=== PATIENT | female | born 1950 | race Caucasian/White ===

== ENCOUNTER 2022-11-08 12:11 | Outpatient (REF) | payer MEDICARE, SELFPAY ==
--- NOTE | ~2022-11-08 | XR_ITS ---
EXAMINATION: RIGHT ELBOW, RIGHT HAND, AND LEFT WRIST. CLINICAL INFORMATION: Pain COMPARISON: None. TECHNIQUE: Three-view left wrist, 3 view right hand, 3 view right elbow. FINDINGS: Right elbow: There is some calcific spurring seen about the medial epicondyle consistent with epicondylitis or possible.. No acute fracture, dislocation, or effusion identified. There is some calcification about the dorsal aspect some which appears be related to calcification within the triceps tendon but other about the joint and may represent acute calcific periarthritis. Right hand: There appears to be some degree of osteopenia present. No acute fracture or dislocation is appreciated. Joint spaces are maintained. Small amount of soft tissue calcification just medial to the base of the fifth metacarpal which may represent sequela of previous trauma. About the dorsum of the wrist there is noted to be a 2 mm calcification which may represent sequela of previous triquetral avulsion injury and clinical correlation is suggested to site of pain. Left wrist: Ectopic soft tissue tubular calcifications are seen about the medial and dorsal aspects of the left wrist which may represent myositis ossificans or tumoral calcinosis. This could also be related to acute calcific ernie- arthritis. There is soft tissue bump seen about the dorsum of the wrist related to this. There is some small regions of calcification at the bases of the first metacarpal and fifth proximal phalanx likely being posttraumatic in nature. No acute fracture or dislocation is evident. Joint spaces are generally maintained. XR/XR hand wrist RT IMPRESSION: No evidence of acute fracture or dislocation of the right elbow, right hand, or left wrist. Calcifications as described above which may be related to acute calcific periarthritis. Other small sites of calcification which may be posttraumatic in nature as described.
--- NOTE | ~2022-11-08 | XR_ITS ---
EXAMINATION: RIGHT ELBOW, RIGHT HAND, AND LEFT WRIST. CLINICAL INFORMATION: Pain COMPARISON: None. TECHNIQUE: Three-view left wrist, 3 view right hand, 3 view right elbow. FINDINGS: Right elbow: There is some calcific spurring seen about the medial epicondyle consistent with epicondylitis or possible.. No acute fracture, dislocation, or effusion identified. There is some calcification about the dorsal aspect some which appears be related to calcification within the triceps tendon but other about the joint and may represent acute calcific periarthritis. Right hand: There appears to be some degree of osteopenia present. No acute fracture or dislocation is appreciated. Joint spaces are maintained. Small amount of soft tissue calcification just medial to the base of the fifth metacarpal which may represent sequela of previous trauma. About the dorsum of the wrist there is noted to be a 2 mm calcification which may represent sequela of previous triquetral avulsion injury and clinical correlation is suggested to site of pain. Left wrist: Ectopic soft tissue tubular calcifications are seen about the medial and dorsal aspects of the left wrist which may represent myositis ossificans or tumoral calcinosis. This could also be related to acute calcific ernie- arthritis. There is soft tissue bump seen about the dorsum of the wrist related to this. There is some small regions of calcification at the bases of the first metacarpal and fifth proximal phalanx likely being posttraumatic in nature. No acute fracture or dislocation is evident. Joint spaces are generally maintained. XR/XR wrist LT 2V IMPRESSION: No evidence of acute fracture or dislocation of the right elbow, right hand, or left wrist. Calcifications as described above which may be related to acute calcific periarthritis. Other small sites of calcification which may be posttraumatic in nature as described.
== END 2022-11-08 12:12 | disposition home or self-care (01) ==
LOC: HO.HMGCX 12:11
PROVIDERS: PCP Internal Medicine Endocrinology, Diabetes & Metabolism; Visit Provider Physician Assistant Medical
DX: M25.531 Pain in right wrist (principal); M25.532 Pain in left wrist; M25.521 Pain in right elbow; M79.641 Pain in right hand
CPT/HCPCS: 73070; 73100; 73110; 73130

== ENCOUNTER 2023-09-06 09:20 | Outpatient (AMB) | payer MEDICARE, SELFPAY ==
[2023-09-06 10:52] VITALS: BP 122/72; PULSE 81; O2SAT 98; BMI 20.2
--- NOTE | 2023-09-06 10:52 | AM.OFFWIN_ITS ---
Intake Vital Signs 09/06/23 10:52 Height 5 ft 5 in Weight 121 lb 2 oz BMI 20.2 BP 122/72 Blood Pressure Location Lt brachial Position Sitting Pulse 81 Pulse Source Pulse Oximeter Pulse Oximetry (%) 98 Oxygen Delivery Method Room Air Intake Visit Reasons: EP RT knee pain Intake Note: Patient is here with right knee pain since August 17 after a fall. Patient Tobacco Use Status: Former Tobacco user Allergies amitriptyline Adverse Reaction (Mild, Verified 09/06/23 10:55) dizzy, sick to stomach, metal taste duloxetine [From Cymbalta] Adverse Reaction (Mild, Verified 09/06/23 10:55) Vomiting meperidine [From Demerol] Adverse Reaction (Mild, Verified 09/06/23 10:55) hard to breathe trazodone Adverse Reaction (Verified 09/06/23 10:55) Unknown Do you need a note to return to daycare/school/sports/work: No HPI EP RT knee pain HPI Details Patient had a fall onto knee and also shoulder. She was seen at the ED and x-rays of her shoulder showed a fracture. Patient did not notice any pain in her knee until later. No x-rays were taken of her knee at that time. She notes that pain continues to worsen. Having pain with walking and bending knee. She has been walking on it however. [facility] Social History Patient Tobacco Use Status: Former Tobacco user Review of Systems Const Details: Left knee pain-see HPI Denies chills, Denies fatigue, Denies fever(s), Denies headache(s) and Denies weakness ENT Denies dizziness and Denies headache(s) Card Denies dyspnea Resp Denies cough, Denies dyspnea, Denies wheezing and Denies other ( shortness of breath) Musc Denies numbness and Denies tingling Neuro Denies dizziness, Denies headache(s), Denies numbness, Denies tingling, Denies paresthesias and Denies weakness Psych Denies anxiety and Denies depression Endo Denies fatigue Aller/Immun Denies wheezing Physical Exam Vital Signs: Last Vital Signs Pulse 81 09/06/23 10:52 BP 122/72 09/06/23 10:52 Pulse Ox 98 09/06/23 10:52 Oxygen Delivery Method Room Air 09/06/23 10:52 BMI result Body Mass Index 20.2 Const General: no acute distress and well developed Nutritional Appearance: well nourished Orientation/consciousness: patient oriented x3 HEENT Head: Yes normocephalic and Yes atraumatic Eyes General: appearance normal, both eyes and all related structures Pupils: Equal, round and reactive pupils present EOM: EOMs intact bilaterally Resp Effort & Inspection: normal respiratory effort Neuro General: patient oriented x3 and gait normal Cranial nerves: Yes Equal, round and reactive pupils present Extrem Other: Mild swelling without erythema or warmth of joint. Patient is able to walk with pain. Tenderness at lateral joint space of right knee. Decreased range of motion,flexion. Apprehension with exam due to pain. ? of positive Lori's sign though difficult to evaluate due to apprehension. Psych Affect: normal affect Assessment & Plan Assessment & Plan (1) Knee pain, right: Code(s): M25.561 - Pain in right knee Plan: Ongoing right knee pain and concern for meniscal injury or occult fracture. Checking x-ray - Reviewed Xray and no acute juana injury seen at time of visit. Narrowed joint spaces. Will give her an knee brace Will give her a short course of prednisone for inflammation and she can continue her other pain medications. Referred to Ortho at pt request Follow up w/ PCP Orders: Referrals Orthopedics Referral M25.561 - Pain in right knee Medications: New prednisone 40 mg (2 x 20 mg) PO DAILY 5 days 10 tabs 0RF diclofenac sodium 1% (Arthritis Pain (diclofenac)) apply to single elbow, wrist or hand; for hand includes palm/fingers/back of hand 2 grams topical QID 14 days 100 grams 0RF Coding Level of Care Code Est Pt Level 3 (49365) Diagnoses Knee pain, right M25.561
== END 2023-09-06 14:17 | disposition home or self-care (01) ==
PROVIDERS: PCP Internal Medicine Endocrinology, Diabetes & Metabolism; Visit Provider Family Medicine
DX: M25.561 Pain in right knee (principal)
CPT/HCPCS: 99213

== ENCOUNTER 2023-09-06 12:00 | Outpatient (REF) | payer MEDICARE, SELFPAY ==
--- NOTE | ~2023-09-06 | XR_ITS ---
EXAMINATION: XR knee RT 4V CLINICAL INFORMATION: Reason for Exam M25.561 - Pain in right knee COMPARISON: None available at the time of this dictation. TECHNIQUE: frontal, lateral, tunnel 4 views. FINDINGS: BONES: No fracture or dislocation is present. JOINTS: Narrowing of joint spaces and developed osteophytes from the edges of articular surfaces suggest degenerative osteoarthritis. 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 No joint effusion.
== END 2023-09-06 12:01 | disposition home or self-care (01) ==
LOC: HO.HMGCX 12:00
PROVIDERS: PCP Internal Medicine Endocrinology, Diabetes & Metabolism; Visit Provider Family Medicine
DX: M25.561 Pain in right knee (principal)
CPT/HCPCS: 73564

== ENCOUNTER 2023-09-25 12:55 | Outpatient (AMB) | payer MEDICARE, SELFPAY ==
[2023-09-25 12:58] VITALS: BMI 20.1
--- NOTE | 2023-09-25 12:58 | MHC.OFFVIS ---
Vital Signs 09/25/23 12:58 Height 5 ft 5 in Weight 121 lb BMI 20.1 Intake Visit Reasons: [employer]IEUT[employer]NT-Pain right knee-fell 08/18/23 Intake Note: Kyleigh is a 73 year old female who present as a new patient with Right knee pain and giving way after falling on 08/18/2023. The patient states that she also suffered a left proximal humerus fracture at that time. She was evaluated by Dr. Paulina Welsh. The patient states that her left humerus fracture is being treated non operatively. She reports mild discomfort in her left shoulder at this time. The patient describes her right knee pain as sharp in nature. Most of the pain is along the medial aspect of her right knee. The patient denies any pain in her right knee prior to her fall. She has done physical therapy exercises which aggravated her pain. She has also tried Tylenol and anti-inflammatory medicines which gave her minimal relief. She has failed the last 6 weeks of conservative treatment. after a a fall on 08/18/2023. Patient states her pain is a 6 on the 1-10 pain scale. She states she is using biofreeze, tylenol, ibuprofen with no relief. She denies surgery and injections. Allergies amitriptyline Adverse Reaction (Mild, Verified 09/25/23 13:08) dizzy, sick to stomach, metal taste duloxetine [From Cymbalta] Adverse Reaction (Mild, Verified 09/25/23 13:08) Vomiting meperidine [From Demerol] Adverse Reaction (Mild, Verified 09/25/23 13:08) hard to breathe trazodone Adverse Reaction (Verified 09/25/23 13:08) Unknown Medication List - Last Reconciled 09/25/23 by Popeye Ghosh MD acetaminophen ER (Tylenol Arthritis Pain) 1,300 mg PO Q12H betamethasone, augmented 0.05 % appl topical BID cholecalciferol (vitamin D3) 50 mcg PO DAILY clindamycin HCl 600 mg PO QID clonazepam 1 mg PO TID PRN cyclosporine 0.05% (Restasis) 1 drp ophthalmic (eye) Q12H dexamethasone 0 mg PO diclofenac sodium 1% (Arthritis Pain (diclofenac)) 2 grams topical QID 14 days fexofenadine (Chasidy Allergy) 180 mg PO DAILY folic acid 1 mg PO DAILY folic acid 1 mg PO DAILY gabapentin 800 mg PO QID [id number] glycn-C 500-400 mg caps PO methocarbamol 500 mg PO BEDTIME methotrexate 2.5 mg PO QWEEK multivitamin 1 tab PO DAILY oxycodone 5 mg PO BID PRN prednisone 40 mg (2 x 20 mg) PO DAILY 5 days PFSH Surgical History History of appendectomy Hx of hand surgery Hx of shoulder surgery (06/19/22) Hx of left knee surgery Social History Patient Tobacco Use Status: Former Tobacco user Current occupational status: retired Current occupation: Right hand dominant Physical Exam Vital Signs: BMI result Body Mass Index 20.1 Const Other: Well-nourished well-developed very friendly female awake alert and oriented x3 in no acute distress Extrem Other: Bilateral lower extremity examination shows good capillary refill, no skin lesions noted, normal sensation light touch Right knee shows a minimal effusion, minimal crepitus with range of motion, tenderness joint positive test, no instability Results Reviewed Results Reviewed: Standing full weight-bearing x-rays of the patient's right knee show mild diffuse joint space narrowing, no acute bony abnormalities Assessment & Plan Assessment & Plan (1) Knee pain, right: Code(s): M25.561 - Pain in right knee Category: Medical Plan Ms. Evangelista presents with right knee pain and mechanical symptoms most likely due to a medial meniscus tear. Thus, I will arrange for the patient to have an MRI of her right knee for further evaluation. I will see her back once the complete to discuss the findings and treatment options. Feel free to call me at any time should questions regarding her orthopedic management arise. Thank you very much for asking me to see this very friendly patient. I spent 20 minutes in reviewing the patient's records and imaging studies, seeing the patient and documenting in the medical record. Orders: Orders MR knee RT wo con 09/25/23 S83.241A - Other tear of medial meniscus, current injury, right knee, initial encounter Coding Level of Care Code New Pt Level 2 (71588) Diagnoses Knee pain, right M25.561
== END 2023-09-25 13:13 | disposition home or self-care (01) ==
PROVIDERS: PCP Internal Medicine Endocrinology, Diabetes & Metabolism; Visit Provider Orthopaedic Surgery
DX: M25.561 Pain in right knee (principal)
CPT/HCPCS: 99202; 99213

== ENCOUNTER → 2023-09-25 12:55 | Outpatient (BNVA) | payer MEDICARE, SELFPAY | PROVIDERS: PCP Internal Medicine Endocrinology, Diabetes & Metabolism; Visit Provider Orthopaedic Surgery | DX: M25.561 Pain in right knee (principal) | CPT/HCPCS: 99212 ==

== ENCOUNTER 2023-10-14 08:29 | Outpatient (AMB) | payer MEDICARE, SELFPAY ==
--- NOTE | 2023-10-14 08:29 | A.OFFVIS_ITS ---
Vital Signs 10/14/23 08:30 Height 5 ft 5 in Weight 121 lb BMI 20.1 Intake Visit Reasons: OV - RT Knee MRI Review Intake Note: Kyleigh is a 73 year old female who presents with Right knee pain and giving way after falling on 08/18/2023. The patient states that she also suffered a left proximal humerus fracture at that time. She was evaluated by Dr. Paulina Wlesh. The patient states that her left humerus fracture is being treated non operatively. She reports mild discomfort in her left shoulder at this time. The patient describes her right knee pain as sharp in nature. Most of the pain is along the medial aspect of her right knee. The patient denies any pain in her right knee prior to her fall. She has done physical therapy exercises which aggravated her pain. She has also tried Tylenol and anti-inflammatory medicines which gave her minimal relief. She has failed the last 6 weeks of conservative treatment. Allergies amitriptyline Adverse Reaction (Mild, Verified 10/14/23 08:36) dizzy, sick to stomach, metal taste duloxetine [From Cymbalta] Adverse Reaction (Mild, Verified 10/14/23 08:36) Vomiting meperidine [From Demerol] Adverse Reaction (Mild, Verified 10/14/23 08:36) hard to breathe trazodone Adverse Reaction (Verified 10/14/23 08:36) Unknown Medication List - Last Reconciled 10/14/23 by Popeye Ghosh MD acetaminophen ER (Tylenol Arthritis Pain) 1,300 mg PO Q12H betamethasone, augmented 0.05 % appl topical BID cholecalciferol (vitamin D3) 50 mcg PO DAILY clindamycin HCl 600 mg PO QID clonazepam 1 mg PO TID PRN cyclosporine 0.05% (Restasis) 1 drp ophthalmic (eye) Q12H dexamethasone 0 mg PO diclofenac sodium 1% (Arthritis Pain (diclofenac)) 2 grams topical QID 14 days fexofenadine (Chasidy Allergy) 180 mg PO DAILY folic acid 1 mg PO DAILY folic acid 1 mg PO DAILY gabapentin 800 mg PO QID [id number]-[id number] glycn-C 500-400 mg caps PO methocarbamol 500 mg PO BEDTIME methotrexate 2.5 mg PO QWEEK multivitamin 1 tab PO DAILY oxycodone 5 mg PO BID PRN prednisone 40 mg (2 x 20 mg) PO DAILY 5 days PFS Surgical History History of appendectomy Hx of hand surgery Hx of shoulder surgery (06/19/22) Hx of left knee surgery Social History Patient Tobacco Use Status: Former Tobacco user Current occupational status: retired Current occupation: Right hand dominant Physical Exam Vital Signs: BMI result Body Mass Index 20.1 Const Other: Well-nourished well-developed very friendly female awake alert and oriented x3 in no acute distress some Extrem Other: Bilateral lower extremity examination shows good capillary refill, no skin lesions noted, normal sensation light touch Right knee examination shows a minimal effusion, minimal crepitus with range of motion, tenderness along her medial and lateral joint lines, positive Lori's test, no instability Results Reviewed Results Reviewed: MRI of the patient's right knee shows mild diffuse degenerative changes as well as tearing of her medial and lateral menisci, no acute bony abnormalities Assessment & Plan Assessment & Plan (1) Knee pain, right: Code(s): M25.561 - Pain in right knee Category: Medical Plan Ms. Evangelista presents with progressively worsening right knee pain and mechanical symptoms due to tearing of her medial and lateral menisci. I had a lengthy discussion with the patient regarding the treatment options. At this point she has failed continued non operative treatments. The risks and benefits of right knee arthroscopic surgery were discussed at length with the patient. The patie nt wishes to proceed with surgery. Surgery will most likely involve right knee diagnostic arthroscopy with arthroscopic partial medial and lateral meniscectomies. The patient does understand that she may not get 100% relief of her symptoms depending on the severity of her degenerative changes. The patient will be scheduled for next available date. She will follow-up as instructed. Feel free to call me at any time should questions regarding her orthopedic management arise. I spent 21 minutes in reviewing the patient's records and imaging studies, seeing the patient and documenting in the medical record. Coding Level of Care Code Est Pt Level 3 (52646) Diagnoses Knee pain, right M25.561
[2023-10-14 08:30] VITALS: BMI 20.1
== END 2023-10-14 08:52 | disposition home or self-care (01) ==
PROVIDERS: PCP Internal Medicine Endocrinology, Diabetes & Metabolism; Visit Provider Orthopaedic Surgery
DX: M25.561 Pain in right knee (principal)
CPT/HCPCS: 99214

== ENCOUNTER → 2023-10-14 08:29 | Outpatient (BNVA) | payer MEDICARE, SELFPAY | PROVIDERS: PCP Internal Medicine Endocrinology, Diabetes & Metabolism; Visit Provider Orthopaedic Surgery | DX: M25.561 Pain in right knee (principal) | CPT/HCPCS: 99212 ==

== ENCOUNTER 2023-12-05 07:13 | Day surgery (SDC) | payer MEDICARE, SELFPAY ==
[2023-11-25 16:23] VITALS: BMI 19.6
--- NOTE | 2023-11-27 11:48 | HO.ANESPROP2 ---
Documented by User: Jazz Calixto NP 11/27/23 11:53 HPI - Anesthesia Eval Consult details Narrative: 73yo F for Right Knee Arthroscopy with medial and lateral meniscectomy 09/2023 - fall with head strike, [facility] ED with negative w/u. Symptoms of headache and blurred R eye vision improved, but mild headache remains. PMFSH Active Problems Active Problems: All Active Problems Right knee injury (Acute) Knee pain, right (Acute) Wrist pain, acute (Acute) Past Medical History Medical History Head injury (~08/2023) Headache Numbness and tingling History of fall (08/18/23) Seasonal allergies Arthritis PONV (postoperative nausea and vomiting) Anxiety Surgical History Surgical History Hx of basal cell carcinoma excision History of total left knee replacement (TKR) (~2010) History of appendectomy Hx of hand surgery Hx of shoulder surgery (06/19/22) Social History Social History Household Members: Spouse Housing: House Are you a primary healthcare specialist to a significant other at home: Yes (older brother in [place]) Do you presently have visiting nurse or other home services: No Patient Tobacco Use Status: Former Tobacco user Tobacco use type: Cigarette Smoked in Last 30 Days: No Use of substances other than those prescribed or required for medical reasons: No Have you been hit, kicked, punched, or otherwise hurt by someone within the past year? If so, by whom?: No Are you DNR?: No Advance Directives: No Advance Directives Information Provided: Yes Advance Directives on File: No Recently lost weight without trying: No Nutrition Risks: No Nutritional Risk Poor oral hygiene: No Current occupational status: retired Current occupation: Right hand dominant Meds Allergies Allergy/AdvReac Type Severity Reaction Status Date / Time meperidine [From Demerol] Allergy Severe hard to Verified 12/05/23 07:36 breathe trazodone Allergy Severe Swelling, Verified 12/05/23 07:36 H/A, SOB, diarrhea amitriptyline Allergy Intermediate dizzy, Verified 12/05/23 07:36 sick to stomach, metal taste duloxetine [From Cymbalta] AdvReac Intermediate Vomiting Verified 12/05/23 07:36 Home Medications ?Medication ?Instructions ?Recorded ?Confirmed ?Last Taken ?Type betamethasone, augmented 0.05 % appl topical BID 11/08/22 10/14/23 Unknown History topical cream clonazepam 1 mg tablet 3 mg PO BEDTIME PRN Insomnia 11/08/22 11/25/23 Unknown History folic acid 1 mg tablet 1 mg PO DAILY 11/08/22 11/25/23 Unknown History gabapentin 800 mg tablet 1,600 mg PO BID 11/08/22 11/25/23 Unknown History cholecalciferol (vitamin D3) 50 50 mcg PO DAILY 09/06/23 11/25/23 Unknown History mcg (2,000 unit) capsule clindamycin HCl 300 mg capsule 1,200 mg PO ONCE 09/06/23 11/25/23 Unknown History cyclosporine 0.05 % eye drops in a 1 drp ophthalmic (eye) Q12H 09/06/23 11/25/23 Unknown History dropperette (Restasis) fexofenadine 180 mg tablet 180 mg PO DAILY 09/06/23 11/25/23 Unknown History (Chasidy Allergy) [id number]-ti glycn-C 500 1 cap PO BID 09/06/23 11/25/23 Unknown History mg-400 mg capsule multivitamin 1 tab PO DAILY 09/06/23 11/25/23 Unknown History acetaminophen 500 mg tablet 1,500 mg PO BID PRN Pain 11/25/23 11/25/23 Unknown History methotrexate sodium 2.5 mg tablet 7.5 mg PO .Q Friday11/25/23 11/25/23 Unknown History Exam Height,Weight and Vital Signs: Height 5 ft 5 in Weight 53.524 kg Pertinent Lab Results Pertinent Lab Results: CBC, BMP, INR 09/2023 from [facility] Narrative Narrative: EKG 09/2023 Ventricular Rate: 99 BPM Atrial Rate: 99 BPM P-R Interval: 140 ms QRS Duration: 76 ms Q-T Interval: 338 ms QTC Calculation(Bazett): 433 ms P Canal [place]: 60 degrees R [place]: 46 degrees T Canal [place]: 64 degrees Normal sinus rhythm Normal ECG When compared with ECG of 03-APR-2020 17:11, No significant change was found Confirmed by Filippo Rangel ([id number]) on 10/16/2023 1:05:42 PM 09/2023 CT of HEAD: BRAIN: No parenchymal hemorrhage, midline shift, or mass effect. Lion-white matter differentiation is well preserved. No acute infarct. Mild low-density white matter changes. VENTRICLES: Ventricles, sulci, and basilar cisterns are normal. EXTRA-AXIAL SPACES: No subarachnoid hemorrhage. No subdural or epidural collection. SKULL/SOFT TISSUES: No fractures or suspicious bony lesions. The extracranial soft tissues are unremarkable. SINUSES: Mucosal thickening in the paranasal sinuses. ORBITS: Visualized orbits and globes are intact. CT of CERVICAL SPINE: CERVICAL SPINE: No fracture or acute malalignment. Status post cervical fusion C4-C6. OTHER BONES: Normal. CERVICAL SOFT TISSUES:Unremarkable. LUNG APICES: Right apical scarring. IMPRESSION: No acute abnormality of the head or cervical spine. Assessment and Plan Assessment Anesthesia Assessment: Chart Reviewed Documented by User: Laurita Sandoval MD 12/05/23 09:15 PMFSH Past Medical History Medical History Head injury (~08/2023) Headache Numbness and tingling History of fall (08/18/23) Seasonal allergies Arthritis PONV (postoperative nausea and vomiting) Anxiety Family History Family history of problems with anesthesia: No Surgical History Surgical History Hx of basal cell carcinoma excision History of total left knee replacement (TKR) (~2010) History of appendectomy Hx of hand surgery Hx of shoulder surgery (06/19/22) History of Problems with Anesthesia: Yes Social History Social History Household Members: Spouse Housing: House Are you a primary healthcare specialist to a significant other at home: Yes (older brother in [place]) Do you presently have visiting nurse or other home services: No Patient Tobacco Use Status: Former Tobacco user Tobacco use type: Cigarette Smoked in Last 30 Days: No Use of substances other than those prescribed or required for medical reasons: No Have you been hit, kicked, punched, or otherwise hurt by someone within the past year? If so, by whom?: No Are you DNR?: No Advance Directives: No Advance Directives Information Provided: Yes Advance Directives on File: No Recently lost weight without trying: No Nutrition Risks: No Nutritional Risk Poor oral hygiene: No Current occupational status: retired Current occupation: Right hand dominant Meds Allergies Allergy/AdvReac Type Severity Reaction Status Date / Time meperidine [From Demerol] Allergy Severe hard to Verified 12/05/23 07:36 breathe trazodone Allergy Severe Swelling, Verified 12/05/23 07:36 H/A, SOB, diarrhea amitriptyline Allergy Intermediate dizzy, Verified 12/05/23 07:36 sick to stomach, metal taste duloxetine [From Cymbalta] AdvReac Intermediate Vomiting Verified 12/05/23 07:36 Home Medications ?Medication ?Instructions ?Recorded ?Confirmed ?Last Taken ?Type betamethasone, augmented 0.05 % appl topical BID 11/08/22 10/14/23 Unknown History topical cream clonazepam 1 mg tablet 3 mg PO BEDTIME PRN Insomnia 11/08/22 11/25/23 Unknown History folic acid 1 mg tablet 1 mg PO DAILY 11/08/22 11/25/23 Unknown History gabapentin 800 mg tablet 1,600 mg PO BID 11/08/22 11/25/23 Unknown History cholecalciferol (vitamin D3) 50 50 mcg PO DAILY 09/06/23 11/25/23 Unknown History mcg (2,000 unit) capsule clindamycin HCl 300 mg capsule 1,200 mg PO ONCE 09/06/23 11/25/23 Unknown History cyclosporine 0.05 % eye drops in a 1 drp ophthalmic (eye) Q12H 09/06/23 11/25/23 Unknown History dropperette (Restasis) fexofenadine 180 mg tablet 180 mg PO DAILY 09/06/23 11/25/23 Unknown History (Chasidy Allergy) nedwbnms-avccnexnxs-mg glycn-C 500 1 cap PO BID 09/06/23 11/25/23 Unknown History mg-400 mg capsule multivitamin 1 tab PO DAILY 09/06/23 11/25/23 Unknown History acetaminophen 500 mg tablet 1,500 mg PO BID PRN Pain 11/25/23 11/25/23 Unknown History methotrexate sodium 2.5 mg tablet 7.5 mg PO .Q Friday11/25/23 11/25/23 Unknown History Exam Airway Mallampati Class: II TM Dist: >3cm Neck ROM: Limited Heart: rrr Lungs: cta Assessment and Plan Assessment Anesthesia Assessment: Anesthesia Plan Discussed Final Anesthetic Review Family History of Problems with Anesthesia: No History of Problems with Anesthesia: Yes NPO: Yes ASA Class: II (pre existing right shoulder pain) Final Preanesthetic Review: No Changes in Pt Med Stat, Meds/Allgs Chart Reviewed, Consent Obtained/Reviewed and Anes Risks/Benef Reviewed Patient Risk: Low Procedure Risk: Low Anesthetic Plan Anesthetic Plan: GA Disposition: Standard PACU
--- OUTSIDE RECORDS SUMMARY | 2023-12-05 07:14 | XMS_ITS | Continuity of Care Document ---
Author Organization [facility] ter Address [address] [place] [id number]- Care Team Providers Care Financial Rep Name Role Phone Flores GUZMÁN, Jason Villarreal Primary Care Physician Encounter [facility] [place] Date(s): 08/18/23 - 08/18/[address] [address]- Encounter Diagnosis Fracture of left proximal humerus(Final) - 08/18/23 Discharge Disposition: A-D/C Home Attending Physician: Abdifatah Abbott DO Admitting Physician: Abdifatah Abbott DO Referring Physician: Not on Staff, Referring MD Allergies, Adverse Reactions, Alerts Substance Reaction Severity Status amitriptyline dizzy metal taste shakey N&V Active trazodone SWELLING DIFFICULTY BREATHING RAPID PULSE DIARRHEA Active Demerol HCl O2 LEVEL LOW DIFFICULTY BREATHING Active Adhesive Bandage 1 PULLS MY SKIN OFF TRANSPORE TAPE Active Cymbalta VOMITING Active 1TRANSPORE TAPE Immunizations Given and Recorded Vaccine Date Status Refusal Reason Hepatitis A-Hepatitis B Vaccine 1 05/13/19 Francheska calloway 1Result Comment: [place] [facility] [place] Chasidy 1 tablet, By Mouth, Daily, Maintenance, 11/21/22 17:13:00 EDT, Partial fill upon patient request ifthe prescription is for a schedule II opioid drug. Start Date: 11/21/22 Status: Ordered clonazePAM 1 mg oral tablet 3 tablet = 3 mg, By Mouth, Daily at bedtime, 0 Refills, Maintenance, 04/04/20 2:50:00 EST, Tablet, Partial fill upon patient request Start Date: 04/04/20 Status: Ordered folic acid 1 mg oral tablet 1 mg, 1, tablet, By Mouth, Daily, Refills 0, Maintenance, 04/04/20 2:50:00 EST, Partial fill upon patient request Start Date: 04/04/20 Status: Ordered gabapentin 800 mg oral tablet 2 tablet = 1,600 mg, By Mouth, 2 times a day, 0 Refills, Maintenance, 04/04/20 2:50:00 EST, Tablet,Partial fill upon patient request Start Date: 04/04/20 Status: Ordered Glucosamine & Chondroitin with MSM 1 tablet, By Mouth, 2 times a day, 0 Refills, Maintenance, 05/30/20 9:48:00 EST, Partial fill upon patient request if the prescription is for a schedule II opioid drug. Start Date: 05/30/20 Status: Ordered methotrexate 2.5 mg oral tablet 4 tablet = 10 mg, By Mouth, Every , PRN ,, 0 Refills, Maintenance, 03/05/19 8:41:26 EDT Start Date: 03/05/19 Status: Ordered Multivitamin 1, By Mouth, Daily, 0 Refills, Maintenance, 09/19/21 11:09:00 EDT, Partial fill upon patient request if the prescription is for a schedule II opioid drug. Start Date: 09/19/21 Status: Ordered oxyCODONE 5 mg oral tablet 5 mg, 1, tablet, By Mouth, Every 6 hours, PRN, for 3 days, 1/2 to 1 tab every 6 hours as needed foradditional pain relief, # 7 tablet, Refills 0, Tot. Refills 0, Acute 08/21/23 13:19:00 EDT, as needed for pain, 08/18/23 13:19:00 EDT, Route to Pharmac... Start Date: 08/18/23 Stop Date: 08/21/23 Status: Ordered Restasis 0.05% ophthalmic emulsion 1 drops, Eyes, Both, Every 12 hours, 0 Refills, Maintenance, 05/30/20 9:48:00 EST, Partial fill upon patient request if the prescription is for a schedule II opioid drug. Start Date: 05/30/20 Status: Ordered Tylenol Extra Strength 500 mg oral tablet 3 tablet = 1,500 mg, By Mouth, 2 times a day, 0 Refills, Maintenance, 05/24/20 8:26:00 EST, Partialfill upon patient request if the prescription is for a schedule II opioid drug. Start Date: 05/24/20 Status: Ordered Vitamin D3 2000 intl units oral capsule 1 capsule = 50 mcg, By Mouth, Daily, 0 Refills, Maintenance, 10/01/21 16:38:00 EDT, Capsule, Partial fill upon patient request if the prescription is for a schedule II opioid drug. 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 Hx of Present Illness: pt presents to ed via triage c o rt sided shoulder pain after a mechanical fall at 0700 today, pt was bending over to feed puppy and fell onto rt shoulder. pt c o 10 10 pain. pt is a ox4. denies other complaints.; Reason: Trauma; Clinical Question(s): Fracture; Special Instructions: COMPARISON: 08/18/2023. FINDINGS: A single lateral view of the left elbow shows no significant acute fracture or dislocation. No significant elbow joint effusion is seen. IMPRESSION: On the a lateral view of the left elbow is available for interpretation. No acute fractures seen. No significant left elbow joint effusion is appreciated. WSN: [id number] Ordering Physician: Rudi Gomez Dictated By: Doron Nogueira MD, V Dictated Date/Time: 08/18/23 12:59 p Reviewed By: Doron Nogueira MD, V Signed By: Doron Nogueira MD, V Signed Date/Time: 08/18/23 12:59 pm Transcribed By: LISA Transcribed Date/Time: 08/18/23 12:57 pm * Exam Date Time Procedure Performing Provider Status 08/18/23 11:32 AM Shoulder Min 2 Views Left Giovanna Rowell; Auth (Verified) Notes: (Shoulder Min 2 Views Left) Reason For Exam: with Pain;Trauma RESULT: Shoulder Min 2 Views Left Examination: Left shoulder performed on 08/18/2023. History: Hx of Present Illness: pt presents to ed via triage c o rt sided shoulder pain after a mechanical fall at 0700 today, pt was bending over to feed puppy and fell onto rt shoulder. pt c o 10 10 pain. pt is a ox4. denies other complaints.; Reason: Trauma; with Pain; Clinical Question(s): Fracture Findings: Two views of the left shoulder are submitted without similar study for comparison. The humeral head maintains alignment with the glenoid. There is a comminuted fracture of the humeral head and neck with avulsion of the greater tuberosity. The AC joint is preserved. Cervical spine fixation hardware is noted. The visualized ribs and lung parenchyma are unremarkable. IMPRESSION: Proximal humeral fracture. An actionable message ([place]) has been communicated via the [employer] system on 08/18/2023 11:51 AM, Message ID [id number]. WSN: [id number] Ordering Physician: Abdifatah Abbott Dictated By: Pari Kahn MD Dictated Date/Time: 08/18/23 11:51 a Reviewed By: Pari Kahn MD Signed By: Pari Kahn MD Signed Date/Time: 08/18/23 11:51 am Transcribed By: LISA Transcribed Date/Time: 08/18/23 11:49 am * Exam Date Time Procedure Performing Provider Status 08/18/23 11:32 AM Elbow Min 3 Views Left Giovanna Rowell; Ninfa th (Verified) Notes: (Elbow Min 3 Views Left) Reason For Exam: with Pain;Trauma RESULT: Elbow Min 3 Views Left Examination: Left elbow performed on 08/18/2023. History: Hx of Present Illness: pt presents to ed via triage c o rt sided shoulder pain after a mechanical fall at 0700 today, pt was bending over to feed puppy and fell onto rt shoulder. pt c o 10 10 pain. pt is a ox4. denies other complaints.; Reason: Trauma; with Pain; Clinical Question(s): Fracture Findings: Attempted frontal, oblique, and lateral views of the left elbow are submitted. No fractures or dislocations are demonstrated. There is no joint effusion. IMPRESSION: There is no acute osseous abnormality. WSN: [id number] Ordering Physician: Abdifatah Abbott Dictated By: Pari Kahn MD Dictated Date/Time: 08/18/23 11:41 a Reviewed By: Pari Kahn MD Signed By: Pari Kahn MD Signed Date/Time: 08/18/23 11:41 am Transcribed By: LISA Transcribed Date/Time: 08/18/23 11:40 am Vital Signs Most recent to oldest [Reference Range]: 1 2 Height 165 cm (08/18/23 11:23 AM) 165 cm (08/18/23 9:43 AM) Oxygen Saturation [94-100 %] 100 % (08/18/23 9:43 AM) Pulse Rate [55-90 bpm] 71 bpm (08/18/23 9:43 AM) Blood Pressure [90-138/55-84 mm Hg] 128/ 63mm Hg (08/18/23 9:43 AM) Respiratory Rate [16-30 br/min] 18 br/mi n (08/18/23 9:43 AM) Temperature [96.8-100.4 DegF] 97.5 DegF (08/18/23 9:43 AM) Mode of Delivery (Oxygen) Room air (08/18/23 9:43 AM) Blood pressure sites Arm, right (08/18/23 9:43 AM) Temperature Route Oral (08/18/23 9:43 AM) Dry Weight 48 kg (08/18/23 11:23 AM) 48 kg (08/18/23 9:43 AM) Dry Weight Obtained Via Patient/family s tated (08/18/23 9:43 AM) Social History Social History Type Response Smoking Status Former smoker entered on: 08/09/14 Sex Female Patient Care team information Care Team Personnel Name: Jason Tanner MD Position: [facility] Physician - Endocrinology Member Role: PCP Address: Address: [address] [place] [address] [facility] [address] Name: Sun Mayen RN Position: S RN Member Role: Primary Care Nurse Name: Elizabeth Silva RN Position: S RN Supv Member Role: Primary Care Nurse Name: Dia Matos RN Position: S RN Member Role: Primary Care Nurse Name: Migue Jeronimo RN Position: S RN Member Role: Primary Care Nurse Care Team Related Persons Name: EMILY OLMOS Address: home [address] [place] [address] Name: STACEY BEJARANO Address: home [address] [place] [address]
--- OUTSIDE RECORDS SUMMARY | 2023-12-05 07:14 | XMS_ITS | Continuity of Care Document ---
Author Organization [facility] Address [address] [place] [address]- Care Team Providers Care Time Clock Inspector Name Role Phone Flores GUZMÁN, Jason Villarreal Primary Care Physician Encounter [facility] [place]CT R [id number] Date(s): 08/06/23 - 09/05/23 [facility] [address] [place] [phone]- Allergies, Adverse Reactions, Alerts Substance Reaction Severity Status trazodone SWELLING DIFFICULTY BREATHING RAPID PULSE DIARRHEA Active Adhesive Bandage 1 PULLS MY SKIN OFF TRANSPORE TAPE Active amitriptyline dizzy metal taste shakey N&V Active Demerol HCl O2 LEVEL LOW DIFFICULTY BREATHING Active Cymbalta VOMITING Active 1TRANSPORE TAPE Immunizations Given and Recorded Vaccine Date Status Refusal Reason Hepatitis A-Hepatitis B Vaccine 1 05/13/19 Francheska calloway 1Result Comment: [place] [facility] [place] Chasidy 1 tablet, By Mouth, Daily, [...] opioid drug. Start Date: 05/30/20 Status: Ordered methocarbamol 500 mg oral tablet 2 tablet = 1,000 mg, By Mouth, 3 times a day, Maintenance, 09/03/23 9:10:00 EDT, Tablet Start Date: 09/03/23 Status: Ordered methotrexate 2.5 mg oral tablet [...] tablet, By Mouth, Every 6 hours, PRN, prescribed 08/18/23 by ER MD for left shoulder fracture, Refills 0, Tot. Refills 0, Maintenance, as needed for pain, 09/03/23 9:11:00 EDT, Partial fill upon patient request if the prescription is for a sche... Start Date: 09/03/23 Status: Ordered Restasis 0.05% ophthalmic emulsion 1 [...] Confirmed Active Left knee pain Confirmed Active Social History Social History Type Response Smoking Status Former smoker entered on: 08/09/14 Sex Female Patient Care team information Care Team Personnel Name: Flores GUZMÁN, Jason Villarreal Position: [facility] Physician - Endocrinology Member Role: PCP Address: Address: [address] [place] [address] [facility] [address] Name: Sun Mayen RN Position: S RN Member Role: Primary Care Nurse Name: Elizabeth Silva RN Position: S RN Supv Member Role: Primary Care Nurse Name: Dia Matos RN Position: S RN Member Role: Primary Care Nurse Name: Migue Jeronimo RN Position: S RN Member Role: Primary Care Nurse Care Team Related Persons Name: EMILY OLMOS Address: home [address] [place] [address] Name: STACEY BEJARANO Address: home [address] [place] [address]
--- OUTSIDE RECORDS SUMMARY | 2023-12-05 07:14 | XMS_ITS | Continuity of Care Document ---
Author Organization [facility] Address [address] [place] [address], [address] Floor, [address] [place] [address]- Care Team Providers Care Director Of Child Welfare Services Name Role Phone Flores GUZMÁN, Jason Villarreal Primary Care Physician Encounter [facility] [place] ACCT R [id number] Date(s): 09/27/23 - 10/27/23 [facility] [address] [place] [address] [address] Floor, [address] [place] [phone]- Allergies, Adverse Reactions, Alerts Substance Reaction Severity Status trazodone SWELLING DIFFICULTY BREATHING RAPID PULSE DIARRHEA Active Adhesive Bandage 1 PULLS MY SKIN OFF TRANSPORE TAPE Active amitriptyline dizzy metal taste shakey N&V Active Demerol HCl O2 LEVEL LOW DIFFICULTY BREATHING Active Cymbalta VOMITING Active 1TRANSPORE TAPE Immunizations Given and Recorded Vaccine Date Status Refusal Reason Hepatitis A-Hepatitis B Vaccine 1 05/13/19 Recorde d 1Result Comment: given at [facility] [place] [place] Medications Chasidy 1 tablet, By Mouth, Daily, [...] Team Personnel Name: Jason Tanner MD Position: [facility] Physician - Endocrinology Member Role: PCP Address: Address: [address] [place] [address] [facility] [address] Name: Sun Mayen RN Position: S RN Member Role: Primary Care Nurse Name: Elizabeth Silva RN Position: S RN Supv Member Role: Primary Care Nurse Name: Dia Matos RN Position: S RN Member Role: Primary Care Nurse Name: Migue Jeronimo RN Position: S RN Member Role: Primary Care Nurse Care Team Related Persons Name: EMILY OLMOS Address: home [address] [place] [address] Name: STACEY BEJARANO Address: home [address] [place] [address]
--- OUTSIDE RECORDS SUMMARY | 2023-12-05 07:14 | XMS_ITS | Continuity of Care Document ---
Author Organization [facility] Address [address] [place] [id number]- Care Team Providers Care Soda Drier Feeder Name Role Phone Flores GUZMÁN, Jason Villarreal Primary Care Physician Encounter [facility] [place] Date(s): 10/15/23 - 10/16/[address] [address]- Encounter Diagnosis Fall(Final) - 10/15/23 Blurring, right eye(Final) - 10/15/23 Headache(Final) - 10/15/23 Discharge Disposition: A-D/C Home Attending Physician: Albino Enamorado MD Admitting Physician: Albino Enamorado MD Referring Physician: Not on Staff, Referring MD [...] 05/13/19 Recorde d 1Result Comment: [place] [facility] [place]asidy 1 tablet, By Mouth, Daily, [...] opioid drug. Start Date: 05/30/20 Status: Ordered Toradol Inj 15 mg, Injection, IV Push Slowly, Once, STAT, 10/15/23 23:26:00 EDT, Stop date 10/15/23 23:26:00 EDT Start Date: 10/15/23 Stop Date: 10/15/23 Status: Completed Tylenol Extra Strength 500 mg oral tablet [...] Exam Date Time Procedure Performing Provider Status 10/15/23 10:[address] Cervical Spine W/O Contrast Soumya Workman; Auth (Verified) Notes: (CT Cervical Spine W/O Contrast) Reason For Exam: Trauma RESULT: CT Cervical Spine W/O Contrast CT Head/Brain W/O Contrast, CT Cervical Spine W/O Contrast Hx of Present Illness: Patient got out of bed friday night at approximately 2300hrs, fell and hit her head on her dresser. Has had a headache ever since with blurred vision.; Reason: Trauma; ClinicalQuestion(s): Subarachnoid Hemorrhage; Order Comment: COMPARISON: None. TECHNIQUE: Incremental CT without contrast through the head was formatted in axial and coronal plane. Spiral CT without contrast through the cervical spine was formatted in 3 planes. Automatic tube modulation was used for the cervical spine and iterative dose reconstruction was used for both the head and cervical spine to optimize scan parameters and image quality. FINDINGS: Cargo Service Supervisor View Findings, Lines and Tubes: None. CT of HEAD: BRAIN: No parenchymal hemorrhage, midline shift, or mass effect. Lion-white matter differentiation is well preserved. No acute infarct. Mild low-density white matter changes. VENTRICLES: Ventricles, sulci, and basilar cisterns are normal. EXTRA-AXIAL SPACES: No subarachnoid hemorrhage. No subdural or epidural collection. SKULL/SOFT TISSUES: No fractures or suspicious bony lesions. The extracranial soft tissues are unremarkable. SINUSES: Mucosal thickening in the paranasal sinuses. ORBITS: Visualized orbits and globes are intact. CT of CERVICAL SPINE: CERVICAL SPINE: No fracture or acute malalignment. Status post cervical fusion C4-C6. OTHER BONES: Normal. CERVICAL SOFT TISSUES:Unremarkable. LUNG APICES: Right apical scarring. IMPRESSION: No acute abnormality of the head or cervical spine. WSN: [id number] Ordering Physician: Jameson Meng Dictated By: Blayne Gomes MD Dictated Date/Time: 10/15/23 11:02 p Reviewed By: Blayne Gomes MD Signed By: Blayne Gomes MD Signed Date/Time: 10/15/23 11:02 pm Transcribed By: LISA Transcribed Date/Time: 10/15/23 10:58 pm * Exam Date Time Procedure Performing Provider Status 10/15/23 10:[address] Head/Brain W/O Contrast Hussein Workman; Auth (Verified) Notes: (CT Head/Brain W/O Contrast) Reason For Exam: Trauma RESULT: CT Head/Brain W/O Contrast CT Head/Brain W/O Contrast, CT Cervical Spine W/O Contrast Hx of Present Illness: Patient got out of bed friday night at approximately 2300hrs, fell and hit her head on her dresser. Has had a headache ever since with blurred vision.; Reason: Trauma; ClinicalQuestion(s): Subarachnoid Hemorrhage; Order Comment: COMPARISON: None. TECHNIQUE: Incremental CT without contrast through the head was formatted in axial and coronal plane. Spiral CT without contrast through the cervical spine was formatted in 3 planes. Automatic tube modulation was used for the cervical spine and iterative dose reconstruction was used for both the head and cervical spine to optimize scan parameters and image quality. FINDINGS: Cargo Service Supervisor View Findings, Lines and Tubes: None. CT of HEAD: BRAIN: No parenchymal hemorrhage, midline shift, or mass effect. Lion-white matter differentiation is well preserved. No acute infarct. Mild low-density white matter changes. VENTRICLES: Ventricles, sulci, and basilar cisterns are normal. EXTRA-AXIAL SPACES: No subarachnoid hemorrhage. No subdural or epidural collection. SKULL/SOFT TISSUES: No fractures or suspicious bony lesions. The extracranial soft tissues are unremarkable. SINUSES: Mucosal thickening in the paranasal sinuses. ORBITS: Visualized orbits and globes are intact. CT of CERVICAL SPINE: CERVICAL SPINE: No fracture or acute malalignment. Status post cervical fusion C4-C6. OTHER BONES: Normal. CERVICAL SOFT TISSUES:Unremarkable. LUNG APICES: Right apical scarring. IMPRESSION: No acute abnormality of the head or cervical spine. WSN: [id number] Ordering Physician: Jameson Meng Dictated By: Blayne Gomes MD Dictated Date/Time: 10/15/23 11:02 p Reviewed By: Blayne Gomes MD Signed By: Blayne Gomes MD Signed Date/Time: 10/15/23 11:02 pm Transcribed By: LISA Transcribed Date/Time: 10/15/23 10:58 pm Vital Signs Most recent to oldest [Reference Range]: 1 2 3 Height 165 cm (10/15/23 6:07 PM) 165 cm (10/15/23 6:02 PM) Weight 53 kg (10/15/23 6:07 PM) 53 kg (10/15/23 6:02 PM) Oxygen Saturation [94-100 %] 99 % (10/16/23 1: AM) 98 % (10/16/23 12:22 AM) 100 % (10/15/23 8:04 PM) Pulse Rate [55-90 bpm] 90 bpm (10/16/23 1:26 AM) 88 bpm (10/16/23 12:22 AM) 89 bpm (10/15/23 8:04 PM) Body Mass Index [18.5-24.99 kg/m2] 19.47 kg/m2 (10/15/23 6:02 PM) Blood Pressure [90-138/55-84 mm Hg] 128/65mm Hg (10/16/23 1:26 AM) 128/71mm Hg (10/16/23 12:22 AM) 150/77mm Hg *H* (10/15/23 8:04 PM) Respiratory Rate [16-30 br/min] 20 br/min (10/16/23 1:26 AM) 20 br/min (10/16/23 12:22 AM) 15 br/min *L* (10/16/23 12:15 AM) Temperature [96.8-100.4 DegF] 98.4 DegF (10/15/23 6:02 PM) Mode of Delivery (Oxygen) Room air (10/16/23 1:26 AM) Room air (10/16/23 12:22 AM) Room air (10/15/23 8:04 PM) Blood pressure sites Arm, right (10/16/23 1:26 AM) Arm, right (10/16/23 12:22 AM) Arm, right (10/15/23 8:04 PM) Temperature Route Oral (10/15/23 6:02 PM) Dry Weight 53 kg (10/15/23 6:07 PM) 53 kg (10/15/23 6:02 PM) Weight Obtained Via Patient/family state d (10/15/23 6:02 PM) Dry Weight Obtained Via Patient/family s tated (10/15/23 6:02 PM) Social History Social History Type Response Smoking Status Former smoker entered on: 08/09/14 Sex Female EKG study * Event Display: ECG 12-Lead Authored Date: Please click on pdf link to open report * Event Display: ECG 12-Lead Authored Date: Ventricular Rate: 99 BPM Atrial Rate: 99 BPM P-R Interval: 140 ms QRS Duration: 76 ms Q-T Interval: 338 ms QTC Calculation(Bazett): 433 ms P [place]: 60 degrees R [place]: 46 degrees T [place]: 64 degrees Normal sinus rhythm Normal ECG When compared with ECG of 03-APR-2020 17:11, No significant change was found Confirmed by Filippo Rangel ([id number]) on 10/16/2023 1:05:42 PM [place]: Filippo Rangel Note * Yusra GUZMÁN, Jameson Roy: PERFORM Event Display: Patient Education Leaflets Authored Date: [id number] Concussion ?? [id number] Concussion A concussion??is a type of brain injury.??It can be caused by a direct??hit or blow??to the head, neck, face, or??body. The force of the blow??makes??the head??and brain shake quickly back and forth.??In some cases, you??may??lose consciousness.??Depending on the severity of the blow, it will take from a few hours up to a few days to get better. Sometimes symptoms may last a few months or longer.This is called post-concussion syndrome. At first, you may have a headache, nausea, vomiting, or dizziness. You may also have problems concentrating or remembering things. These are common symptoms after a concussion. Symptoms should get better as the hours and days go by. Symptoms that get worse could be a sign of a more serious??brain??injury. This might be a bruise or bleeding in the brain. That???s why it???s important to watch for the warning signs listed below. School-age children are more at risk for symptoms that don???t go away after a concussion. They should be watched very closely.?? Home care If your injury is mild and there are no serious signs or symptoms, your healthcare provider may advise that you be watched??at home. If there is evidence that the injury is more serious, you will be watched??in the hospital. Follow these tips to help care for yourself at home: ??? Sleeping is ok and it is usually not necessary to have someone wake you up from sleep after a minor head injury. After a concussion, follow your healthcare provider's specific instructions. ??? If your face or scalp swells, apply an ice pack for 20 minutes every 1 to 2 hours. Do this until the swelling starts to go down. To make an ice pack, put ice cubes in a plastic bag that seals at the top. Wrap the bag in a cl ladan, thin towel or cloth. Never put ice or an ice pack directly on the skin. ??? You may use acetaminophen to control pain, unless another pain medicine was prescribed. Don't use aspirin or ibuprofenafter a head injury.??If you have long-lasting (chronic)??liver or kidney disease, talk with your healthcare provider??before using these medicines. Also talk with your provider??if you ever had a stomach ulcer or??gastrointestinal bleeding. ??? For the next 24 hours: o Don???t drink alcohol or take sedatives or medicines that make you sleepy. o Don???t drive or operate machinery. o Don't do anything strenuous. Don???t lift or strain. ??? Don???t return??right away??to sports or??to??any activity??where you could??hit your head. Wait??until all symptoms are gone and you have been cleared by your??healthcare provider.??Having a??second head injury before??you??fully recover??can lead to serious brain injury. ??? After a few days, it???s OK to go back to your normal daily activities. But don???t do anything that could cause your head to be hit again. ?? Follow-up care Follow up with your healthcare provider??in 1 week, or as directed. A radiologist will review any X-rays or CT scans that were taken. You will be told of any new findings that may affect your care. ?? When to get medical advice Call your healthcare provider right away??if any of these occur: ??? Headache??or dizziness??that won???t go away ??? Redness, warmth, or pus from the swollen area ?? Call 911 Call 911 or get medical care right away if any of these occur: ??? Repeated vomiting (it???s commonto vomit??once after a head injury) ??? Headache or dizziness that is severe or gets worse ??? [place] consciousness ??? Unusual drowsiness, or unable to wake up as usual ??? Weakness or decreased ability to walk or move any limb ??? Confusion, agitation,??or change in behavior or speech, or memoryloss ??? Blurred vision ??? Convulsion (seizure) ??? Swelling on the scalp or face that gets worse ??? Changes in pupil size (the black part of the eye) ??? Fluid draining from or bleeding from the nose or ears ?? Last Reviewed Date: 2021 ?? 8564-9560 [employer]. All rights reserved. This information is not intended as a substitute for professional medical care. Always follow your healthcare professional's instructions. ?? * Yusra GUZMÁN, Jameson Roy: PERFORM Event Display: Patient Education Leaflets Authored Date: [id number] Headache, Unspecified ?? [id number] Headache, Unspecified A number of things can cause headaches. The cause of your headache isn???t clear. But it doesn???t seem to be a sign of any serious illness. Headache affects almost everyone at some time. It's the most common reason people miss days from work or school. A physical and nervous system exam can help rule out any serious causes of headache. Sometimes you may need more testing. This could include blood work or imaging tests of the head, such as a CAT scan or MRI. You could have a tension headache or a migraine headache. Stress can cause a tension headache. This can happen if you tense the muscles of your shoulders, neck, and scalp without knowing it. If this stress lasts long enough, you may develop a tension headache. It's not clear why migraines occur, but certain things called triggers can raise the risk of havinga migraine attack. Migraine triggers may include emotional stress or depression, or by hormone changes during the menstrual cycle. Other triggers include control pills and other medicines, alcohol or caffeine, foods with tyramine, such as aged cheese or wine, eyestrain, weather changes, missed meals, and lack of sleep or oversleeping. Other causes of headache include: ??? Viral illness with high fever ??? Head injury with concussion ??? Sinus, ear, or throat infection ??? Dental pain and jaw joint (TMJ) pain More serious but less common causes of headache include stroke, brain hemorrhage, brain tumor, meningitis, and encephalitis. Home care Follow these tips when taking care of yourself at home: ??? Don???t drive yourself home if you weregiven pain medicine for your headache. Instead, have someone else drive you home. Try to sleep whenyou get home. You should feel much better when you wake up. ??? Apply heat to the back of your neckto ease a neck muscle spasm. Take care of a migraine headache by putting an ice pack on your forehead or at the base of your skull. ??? If you have nausea or vomiting, eat a light diet until your headache eases. ??? If you have a migraine headache, use sunglasses when in the daylight or around bright indoor lighting until your symptoms get better. Bright glaring light can make this type of headache worse. ?? Follow-up care Follow up with your healthcare provider, or as advised. Talk with your provider if you have frequent headaches. They can help figure out a treatment plan. By knowing the earliest signs of headache, and starting treatment right away, you may be able to stop the pain yourself. ?? When to get medical advice Call your healthcare provider right away??if any of the following occur: ??? Your head pain suddenly gets worse after sexual intercourse or strenuous activity ??? Your head pain doesn???t get better within 24 hours ??? You have new symptoms ??? You aren???t able to keep liquids down (repeated vomiting) ??? Fever of 100.4??F (38??C) or higher, or as directed by your healthcare provider ??? Stiff neck ??? Extreme drowsiness, confusion, or fainting ??? Dizziness or dizziness with spinning sensation (vertigo) ??? Weakness in an arm or leg or one side of your face ??? You have trouble talking or seeing ?? Last Reviewed Date: 2022 ?? 2313-0001 [employer]. All rights reserved. This information is not intended as a substitute for professional medical care. Always follow your healthcare professional's instructions. ?? Patient Care team information Care Team Personnel Name: Jason Tanner MD Position: [facility] Physician - Endocrinology Member Role: PCP Address: Address: [address] [place] [address] [facility] [address] Name: Sun Mayen RN Position: S RN Member Role: Primary Care Nurse Name: Elizabeth Silva RN Position: S RN Supv Member Role: Primary Care Nurse Name: Dia Matos RN Position: S RN Member Role: Primary Care Nurse Name: Migue Jeronimo RN Position: S RN Member Role: Primary Care Nurse Care Team Related Persons Name: EMILY OLMOS Address: home [address] [place] [address] Name: STACEY BEJARANO Address: home [address] [place] [address]
--- OUTSIDE RECORDS SUMMARY | 2023-12-05 07:14 | XMS_ITS | Continuity of Care Document ---
Author Organization [facility] Address [address] [place] [address]- Care Team Providers Care Sawmill Manager Name Role Phone Jason Tanner MD Primary Care Physician [phone] [place] [facility] [place] - 11/28/23 [facility] [address] [place] [address]- Attending Physician: Karl Sellers MD Admitting Physician: Karl Sellers MD Referring Physician: Jason Tanner MD Allergies, Adverse Reactions, Alerts Substance Reaction [...] 05/13/19 Recorde d 1Result Comment: given at [facility] [place] Medications Chasidy 1 tablet, By Mouth, Daily, [...] Team Personnel Name: Jason Tanner MD Position: [facility] Outreach Member Role: PCP Address: Address: [address] [place] [address] [facility] [address] Name: Sun Mayen RN Position: S RN Member Role: Primary Care Nurse Name: Elizabeth Silva RN Position: S RN Supv Member Role: Primary Care Nurse Name: Dia Matos RN Position: S RN Member Role: Primary Care Nurse Name: Migue Jeronimo RN Position: S RN Member Role: Primary Care Nurse Care Team Related Persons Name: EMILY OLMOS Address: home [address] [place] [address] Name: STACEY BEJARANO Address: home [address] [place] [address]
--- OUTSIDE RECORDS SUMMARY | 2023-12-05 07:15 | XMS_ITS | Continuity of Care Document ---
Author Organization [facility] Address [address] [place] [address]- Care Team Providers Care Automation Qtp Tester Name Role Phone Flores GUZMÁN, Jason Villarreal Primary Care Physician [place] [facility] [place] 11[place]14/23 [facility] [address] [place] [address]- Allergies, Adverse Reactions, Alerts Substance Reaction Severity [...] 05/13/19 Recorde d 1Result Comment: [place] [facility] [place] Chasidy 1 tablet, By Mouth, Daily, [...] Team Personnel Name: Jason Tanner MD Position: [facility] Outreach Member Role: PCP Address: Address: [address] [place] [address] [facility] [address] Name: Sun Mayen RN Position: S RN Member Role: Primary Care Nurse Name: Elizabeth Silva RN Position: S RN Supv Member Role: Primary Care Nurse Name: Dia Matos RN Position: S RN Member Role: Primary Care Nurse Name: Migue Jeronimo RN Position: S RN Member Role: Primary Care Nurse Care Team Related Persons Name: EMILY OLMOS Address: home [address] [place] [address] Name: STACEY BEJARANO Address: home [address] [place] [address]
--- OUTSIDE RECORDS SUMMARY | 2023-12-05 07:15 | XMS_ITS | Continuity of Care Document ---
Author Organization [facility] Address [address] [place] [address]- Care Team Providers Care Data Migration Lead Name Role Phone Jason Tanner MD Primary Care Physician [phone] [place] [facility] [place] [facility] [place] [id number] Date(s): 08/12/23 - 09/11/23 [facility] [address] [place] [address]- Allergies, Adverse Reactions, Alerts Substance Reaction Severity [...] 05/13/19 Francheska call[place]ay 1Result Comment: [place] [facility] [place] Chasidy 1 tablet, By Mouth, Daily, [...] Personnel Name: Flores GUZMÁN, Jason Villarreal Position: [facility] Physician - Endocrinology Member Role: PCP Address: Address: [address] [place] [address] [facility] [address] Name: Sun Mayen RN Position: S RN Member Role: Primary Care Nurse Name: Elizabeth Silva RN Position: S RN Supv Member Role: Primary Care Nurse Name: Dia Matos RN Position: S RN Member Role: Primary Care Nurse Name: Migue Jeronimo RN Position: S RN Member Role: Primary Care Nurse Care Team Related Persons Name: EMILY OLMOS Address: home [address] [place] [address] Name: STACEY BEJARANO Address: home [address] [place] [address]
--- OUTSIDE RECORDS SUMMARY | 2023-12-05 07:15 | XMS_ITS | Continuity of Care Document ---
Author Organization [facility] Address [address] [place] [address] [address] [place] [address]- Care Team Providers Care Veterinary Assistant Technician Name Role Phone Flores GUZMÁN, Jason Villarreal Primary Care Physician Encounter [facility] Date(s): 01/15/23 - 02/14/23 [facility] [address] [place] [address]- Allergies, Adverse Reactions, Alerts Substance Reaction Severity [...] 05/13/19 Recorde d 1Result Comment: [place] [facility] [place] Chasidy 1 tablet, By Mouth, Daily, Maintenance, 11/21/22 17:13:00 EDT, Partial fill upon patient request ifthe prescription is for a schedule II opioid drug. Start Date: 11/21/22 Status: Ordered clindamycin 300 mg oral capsule 4 capsule = 1,200 mg, By Mouth, Once, prior to dental appt, Maintenance, 11/21/22 17:15:00 EDT, Partial fill upon patient request if [...] opioid drug. 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 Cervical disc disorder with myelopathy Confirmed Active Hypertension Confirmed Active IBS (irritable bowel syndrome) Confirmed Active Left knee pain Confirmed Active Underweight Confirmed Active Social History Social History Type Response Smoking Status Former smoker entered on: 08/09/14 Sex Female Patient Care team information Care Team Personnel Name: Jason Tanner MD Position: S Physician - Endocrinology Member Role: PCP Address: Address: [address] [place] [address] [facility] [address] Name: Sun Mayen RN Position: S RN Member Role: Primary Care Nurse Name: Elizabeth Silva RN Position: S RN Supv Member Role: Primary Care Nurse Name: Dia Matos RN Position: S RN Member Role: Primary Care Nurse Name: Migue Jeronimo RN Position: S RN Member Role: Primary Care Nurse Care Team Related Persons Name: EMILY OLMOS Address: home [address] [place] [address] Name: STACEY BEJARANO Address: home [address] [place] [address]
--- OUTSIDE RECORDS SUMMARY | 2023-12-05 07:16 | XMS_ITS | Continuity of Care Document ---
Author Organization [facility] ter Address [address] [place] [id number]- Care Team Providers Care Cardroom Manager Name Role Phone Flores GUZMÁN, Jason Villarreal Primary Care Physician [phone] Encounter [facility] [place] Date(s): 11/21/22 - 11/22/[address] [address]- Encounter Diagnosis Syncope(Final) - 11/21/22 Discharge Disposition: A-D/C Home Attending Physician: Mele GUZMÁN, Juaquin Maria Admitting Physician: Vijay GUZMÁN, Ayleen Camarena Referring Physician: Not on Staff, Referring MD [...] 05/13/19 Recorde d 1Result Comment: given at [facility] [place] Medications Acetaminophen Tablet 650 mg, Tablet, By Mouth, Every 4 hours, PRN for Pain , Mild, Temperature Greater than 100.5, Routine, 11/21/22 16:00:00 EDT Start Date: 11/21/22 Stop Date: 11/22/22 Status: Discontinued Chasidy 1 tablet, By Mouth, Daily, Maintenance, [...] request Start Date: 04/04/20 Status: Ordered gabapentin 400 mg oral capsule 1,600 mg, Capsule, By Mouth, 11/22/22 9:00:00 EDT Start Date: 11/22/22 Stop Date: 11/22/22 Status: Completed gabapentin 800 mg oral tablet 2 tablet [...] knee pain Confirmed Active Underweight Confirmed Active Results Radiology Reports * Exam Date Time Procedure Performing Provider Status 11/21/22 2:58 PM Chest 2 Views Frontal and Lat Kelvin Sahu; Auth (Verified) Notes: (Chest 2 Views Frontal and Lat) Reason For Exam: Other: RESULT: Chest 2 Views Frontal and Lat Chest 2 Views Frontal and Lat Reason: Other:; Clinical Question(s): Other:; Order Comment: COMPARISON: January 01, 2010. FINDINGS: LINES AND TUBES: None. LUNGS AND PLEURA: Clear lungs. Normal pulmonary vascularity. No pleural effusion. No pneumothorax. HEART, MEDIASTINUM AND YURIDIA: Heart is normal in size. Normal mediastinal and hilar contour. BONES AND SOFT TISSUES: No acute abnormality. IMPRESSION: No acute abnormality. WSN: [id number] Ordering Physician: Leon Toribio Dictated By: Juaquin Sanchez MD Dictated Date/Time: 11/21/22 3:12 pm Reviewed By: Juaquin Sanchez MD Signed By: Juaquin Sanchez MD Signed Date/Time: 11/21/22 3:12 pm Transcribed By: LISA Transcribed Date/Time: 11/21/22 3:11 pm * Exam Date Time Procedure Performing Provider Status 11/21/22 2:58 PM Elbow Min 3 Views Right Monse Sahu; Auth (Verified) Notes: (Elbow Min 3 Views Right) Reason For Exam: Pain RESULT: Elbow Min 3 Views Right Elbow Min 3 Views Right, 3 views Reason: Pain; Clinical Question(s): Fracture COMPARISON: None. FINDINGS: No fracture or dislocation. Mild degenerative spurring at the condyles and enthesopathic changes at the triceps insertion. No joint effusion. IMPRESSION: Mild degenerative changes but no fracture. WSN: [id number] Ordering Physician: Leon Toribio Dictated By: Juaquin Sanchez MD Dictated Date/Time: 11/21/22 3:11 pm Reviewed By: Juaquin Sanchez MD Signed By: Juaquin Sanchez MD Signed Date/Time: 11/21/22 3:11 pm Transcribed By: LISA Transcribed Date/Time: 11/21/22 3:09 pm * Exam Date Time Procedure Performing Provider Status 11/21/22 12:[address] Cervical Spine W/O Contrast Felicia Valdez; Emmanuel (Verified) Notes: (CT Cervical Spine W/O Contrast) Reason For Exam: Neck trauma, dangerous injury mechanism;Other: RESULT: CT Cervical Spine W/O Contrast CT Head/Brain W/O Contrast, CT Cervical Spine W/O Contrast CLINICAL INDICATION: Unwitnessed syncope striking right forehead. PRIOR EXAMS: 04/30/2019. TECHNIQUE: Incremental CT without contrast through the head was formatted in axial and coronal plane. Spiral CT without contrast through the cervical spine was formatted in 3 planes. Automatic tube modulation was used for the cervical spine and iterative dose reconstruction was used for both the head and cervical spine to optimize scan parameters and image quality. RADIATION DOSE PARAMETERS: CTDIvol Body: 10.46 mGy, DLP Body: 253 mGy*cm. CTDIvol Head: 48.92 mGy, DLP Head: 783 mGy*cm. FINDINGS: BRAIN There is no infarct. There is no intracerebral hemorrhage. There is no mass. VENTRICLES AND SULCI: The ventricles and sulci are symmetrical and normal for age.. WHITE MATTER: Mild patchy white matter abnormality. EXTRA AXIAL SPACES: There is no abnormal epidural, subdural, or subarachnoid blood or fluid. SKULL: There is no skull fracture.. PARANASAL SINUSES: Prior right maxillary sinus surgery. The right maxillary sinus is at least 50% opacified. Partial ethmoidectomy. The other paranasal sinuses are clear.. TEMPORAL BONES: The mastoid air cells are clear, as are the middle ear cavities. CERVICAL VERTEBRAL BODIES: There is no fracture. There is no focal bony lesion.. ALIGNMENT OF CERVICAL SPINE: Satisfactory position of prior anterior fusion C4-C5-C6. Prominent degenerative changes at other levels. This includes mild central spinal stenosis at C3-C4.. CERVICAL DEGENERATIVE CHANGES: There are no degenerative changes. LUNG APICES: No pneumothorax. IMPRESSION: HEAD 1. No acute intracranial abnormality. 2. No skull fracture. CERVICAL SPINE: 1. There is no fracture. There is no focal bony lesion. 2. Normal alignment. 3. Mild central spinal stenosis C3-C4. WSN: [id number] Ordering Physician: Leon Toribio Dictated By: Aleksandr Lozoya MD Dictated Date/Time: 11/21/22 12:22 p Reviewed By: Aleksandr Lozoya MD Signed By: Aleksandr Lozoya MD Signed Date/Time: 11/21/22 12:22 pm Transcribed By: LISA Transcribed Date/Time: 11/21/22 12:14 pm * Exam Date Time Procedure Performing Provider Status 11/21/22 12:[address] Head/Brain W/O Contrast Felicia Cheng; Emmanuel (Verified) Notes: (CT Head/Brain W/O Contrast) Reason For Exam: Other: RESULT: CT Head/Brain W/O Contrast CT Head/Brain W/O Contrast, CT Cervical Spine W/O Contrast CLINICAL INDICATION: Unwitnessed syncope striking right forehead. PRIOR EXAMS: 04/30/2019. TECHNIQUE: Incremental CT without contrast through the head was formatted in axial and coronal plane. Spiral CT without contrast through the cervical spine was formatted in 3 planes. Automatic tube modulation was used for the cervical spine and iterative dose reconstruction was used for both the head and cervical spine to optimize scan parameters and image quality. RADIATION DOSE PARAMETERS: CTDIvol Body: 10.46 mGy, DLP Body: 253 mGy*cm. CTDIvol Head: 48.92 mGy, DLP Head: 783 mGy*cm. FINDINGS: BRAIN There is no infarct. There is no intracerebral hemorrhage. There is no mass. VENTRICLES AND SULCI: The ventricles and sulci are symmetrical and normal for age.. WHITE MATTER: Mild patchy white matter abnormality. EXTRA AXIAL SPACES: There is no abnormal epidural, subdural, or subarachnoid blood or fluid. SKULL: There is no skull fracture.. PARANASAL SINUSES: Prior right maxillary sinus surgery. The right maxillary sinus is at least 50% opacified. Partial ethmoidectomy. The other paranasal sinuses are clear.. TEMPORAL BONES: The mastoid air cells are clear, as are the middle ear cavities. CERVICAL VERTEBRAL BODIES: There is no fracture. There is no focal bony lesion.. ALIGNMENT OF CERVICAL SPINE: Satisfactory position of prior anterior fusion C4-C5-C6. Prominent degenerative changes at other levels. This includes mild central spinal stenosis at C3-C4.. CERVICAL DEGENERATIVE CHANGES: There are no degenerative changes. LUNG APICES: No pneumothorax. IMPRESSION: HEAD 1. No acute intracranial abnormality. 2. No skull fracture. CERVICAL SPINE: 1. There is no fracture. There is no focal bony lesion. 2. Normal alignment. 3. Mild central spinal stenosis C3-C4. WSN: [id number] Ordering Physician: Leon Toribio Dictated By: Aleksandr Lozoya MD Dictated Date/Time: 11/21/22 12:22 p Reviewed By: Aleksandr Lozoya MD Signed By: Aleksandr Lozoya MD Signed Date/Time: 11/21/22 12:22 pm Transcribed By: LISA Transcribed Date/Time: 11/21/22 12:14 pm Vital Signs Most recent to oldest [Reference Range]: 1 2 3 Height 165 cm (11/22/22 10:42 AM) 165 cm (11/22/22 10:07 AM) 165 cm (11/22/22 7:09 AM) Weight 50.2 kg (11/21/22 8:30 PM) 50.2 kg (11/21/22 7:40 PM) Oxygen Saturation [94-100 %] 100 % (11/22/22 10:42 AM) 98 % (11/22/22 7:09 AM) 100 % (11/22/22 3:00 AM) Pulse Rate [55-90 bpm] 86 bpm (11/22/22 10:42 AM) 82 bpm (11/22/22 7:09 AM) 80 bpm (11/22/22 3:00 AM) Body Mass Index [18.5-24.99 kg/m2] 18.44 kg/m2 *L* (11/21/22 8:30 PM) Blood Pressure [90-138/55-84 mm Hg] 138/65mm Hg (11/22/22 10:42 AM) 143/82mm Hg *H* (11/22/22 7:09 AM) 133/81mm Hg (11/22/22 3:00 AM) Respiratory Rate [16-30 br/min] 20 br/min (11/22/22 10:42 AM) 20 br/min (11/22/22 9:33 AM) 20 br/min (11/22/22 9:33 AM) Temperature [96.8-100.4 DegF] 98.2 DegF (11/22/22 10:42 AM) 98.0 DegF (11/22/22 7:09 AM) 98.0 DegF (11/22/22 3:00 AM) Mode of Delivery (Oxygen) Room air (11/22/22 10:42 AM) Room air (11/22/22 7:09 AM) Room air (11/22/22 3:00 AM) Blood pressure sites Arm, left (11/22/22 10:42 AM) Arm, left (11/22/22 7:09 AM) Arm, left (11/22/22 3:00 AM) Temperature Route Oral (11/22/22 10:42 AM) Oral (11/22/22 7:09 AM) Oral (11/22/22 3:00 AM) Dry Weight 50.2 kg (11/21/22 8:30 PM) Weight Obtained Via Bed scale (11/21/22 8:30 PM) Bed scale (11/21/22 7:40 PM) Social History Social History Type Response Smoking Status Former smoker entered on: 08/09/14 Sex Female History and physical note * Enid GUZMÁN, Adry: PERFORM Event Display: History and Physical Hospital Authored Date: Patient: ??SUE BEJARANO ? Age:??72 Years?Sex:??Female?:??1950?? Chief Complaint/Reason for Consultation felt fine waking up, walked to bathroom, onset of feeling dizzy/lightheaded. heard collapse, did not witness. out for about 2 minutes. came back around slowly. could not initially see out of right eye but this has resolved. had a BM after syncopal History of Present Illness Date of exam: 11/21/2022 ?? 72-year-old female with history of hypertension, IBS, bullous pemphigoid, presented to ED with 1 episode of syncope.?? She was getting into the shower when she felt weird , felt foggy and tried to sit down.?? The next thing she remembers was when she came to, she was on the ground with her husbandstanding over her.?? States loss of consciousness must have?? lasted about a minute.?? called 911 and brought her to ED.?? She denies having any palpitations, chest pain, shortness of breath.?? No previous syncopal episodes.?? No nausea, vomiting, abdominal pain, dysuria or change in bowel habits.?? Of note, when she came to, she could not see out of her right eye for about 3 to 5 minutesand that has now completely resolved.?? No change in diet or medications recently.?? She was outside in the heat all day yesterday but stated that she drank a good amount of water.?? She has been under a lot of life stress.?? Was taking care of her dying mother for the last 2 months and her mother few days ago. ?? Upon arrival to ED, afebrile, hemodynamically stable and saturating well on room air.?? Labs showing no leukocytosis, electrolytes, kidney function, LFTs normal, initial troponin 14, subsequently 13.?? TSH normal.?? COVID-19 normal.?? UA normal.?? CT scan of the head and cervical spine with no fractures, no focal bony lesions.?? Chest x-ray with no acute disease.?? Right elbow x-ray with no fracture.?? Bump over the right forehead that is improving.?? EKG with normal sinus rhythm, no acute ischemic changes.?? Admitted for further evaluation. ?? During my exam, feels okay.?? Has been ambulating without feeling dizzy or lightheaded.?? Rest of ROS negative. ?? Review of Systems Constitutional: No fevers, chills HEENT: No headache, rhinorrhea, difficulty swallowing, blurry vision Cardiovascular: No chest pain, had a syncopal episode Respiratory: No shortness of breath, no cough, no wheezing GI: No nausea, no vomiting, no abdominal pain, no change in bowel habits Neuro: No weakness, numbness, tingling in extremities Psych: No acute behavioral changes Muscular skeletal: No joint or muscle pain Endocrine: No recent weight loss or gain, no change in appetite : No dysuria or hematuria Objective Vital Signs?? Temperature: 98.3 DegF (11/21/22 23:00:00) Temperature Route: Oral (11/21/22 23:00:00) Pulse Rate: 81 bpm (11/21/22 23:00:00) Respiratory Rate: 17 br/min (11/21/22 23:00:00) Systolic Blood Pressure: 138 mm Hg (11/21/22 23:00:00) Diastolic Blood Pressure: 81 mm Hg (11/21/22 23:00:00) Blood pressure sites: Arm, left (11/21/22 23:00:00) Mean Arterial Pressure: 91 mm Hg (11/21/22 20:30:00) Pulse Pressure: 57 mm Hg (11/21/22 23:00:00) Oxygen Saturation: 99 % (11/21/22 23:00:00) Mode of Delivery (Oxygen): Room air (11/21/22 23:00:00) Early Warning Score: 0 (11/21/22 23:38:00) ? Physical Exam General: NAD HEENT: PERRLA, EOMI, moist mucous membranes,??small bump over the right side of the forehead that is improving Neck: Supple Cardiac: S1, S2 heard, no murmurs Pulmonary: Clear to auscultation bilaterally, good bilateral air entry Abdomen: Soft, nontender, nondistended, bowel sounds heard Extremities: No cyanosis, clubbing or edema Skin: No rash Neuro: No focal deficits, awake and alert Psych: Mood and affect appropriate for encounter Assessment/Plan Assessment:??72-year-old female with history of hypertension, IBS, bullous pemphigoid,??admitted with syncope ?? Syncope (R55):??Presenting symptoms??suggestive of presyncopal aura.??Cardiogenic syncope less likely.??Patient under a lot of life stressors at the moment.??Could be vasovagal episode. EKG with no acute ischemic changes, troponins negative.??Normal sinus rhythm CT scan of the head and cervical spine without any??acute abnormalities Continue cardiac monitoring Check echocardiogram??to assess LV function and valves Check carotid ultrasound Able to ambulate without any??issues, no dizziness or lightheadedness ?? Hypertension (I10):??Not on any medications ?? VTE Prophylaxis:??Low risk ?VTE Prophylaxis Assessment:??Risk Level documented as Low Risk ?? Code Status:??Full code ? Histories Allergies Allergies ?(Active and Proposed Allergies Only) Adhesive Bandage? (Severity: Unknown severity, Onset: Unknown) ?Reactions: TRANSPORE TAPE, PULLS BY SKIN OFF, PULLS MY SKIN OFF ?Comments: TRANSPORE TAPE Cymbalta? (Severity: Unknown severity, Onset: Unknown) ?Reactions: VOMITING trazodone? (Severity: Unknown severity, Onset: Unknown) ?Reactions: SWELLING DIFFICULTY BREATHING RAPID PULSE DIARRHEA Demerol HCl? (Severity: Unknown severity, Onset: Unknown) ?Reactions: O2 LEVEL LOW DIFFICULTY BREATHING amitriptyline? (Severity: Unknown severity, Onset: Unknown) ?Reactions: dizzy metal taste shakey N&V ? Past Medical History/Problem List Active Problems??(7) Bullous pemphigoid Capsular contracture of breast implant Cervical disc disorder with myelopathy Hypertension IBS (irritable bowel syndrome) Left knee pain Underweight ? Past Surgical History Cervical disc disease Sinus Arthroscopy of knee Rotator cuff ACL sprain Eye Cataract Knee replacement Cervical discectomy Carpal tunnel Abdominal hysterectomy Basil Appendectomy Sling ? Social History Alcohol Details:??Use: Never. Exercise Details:??Self assessment: Good condition. Nutrition/Health Details:??Diet: Regular. ??Caffeine intake amount: 1 cup of coffee daily. Tobacco Details:??Former smoker ? Family History Mother: Hypertension Father: CAD - Coronary artery disease; Diabetes mellitus type II; Hypertension Mat. Grandmother: Unknown (origin) ? Medications Home Medications Acetaminophen (Tylenol Extra Strength 500 mg oral tablet)?3?tab(s)?1,500?Milligram?By Mouth?2 times a day Cholecalciferol (Vitamin D3 2000 intl units oral capsule)?1?capsule?50?Microgram?By Mouth?Daily Chondroitin/Glucosamine/Methylsulfonylmethane (Glucosamine & Chondroitin with MSM)?1?tab(s)?By Mouth?2 times a day Clindamycin (clindamycin 300 mg oral capsule)?4?capsule?1,200?Milligram?By Mouth?Once?prior to dental appt Clonazepam (clonazePAM 1 mg oral tablet)?3?tab(s)?3?Milligram?By Mouth?Daily at bedtime Cyclosporine Ophthalmic (Restasis 0.05% ophthalmic emulsion)?1?Drops?Eyes, Both?Every 12 hours Fexofenadine (Chasidy)?1?tab(s)?By Mouth?Daily Folic Acid (folic acid 1 mg oral tablet)?1?Milligram?1?tablet?By Mouth?Daily Gabapentin (gabapentin 800 mg oral tablet)?2?tab(s)?1,600?Milligram?By Mouth?2 times a day Methotrexate (methotrexate 2.5 mg oral tablet)?4?tab(s)?10?Milligram?By Mouth?Every ?as needed?, Multivitamin?1?By Mouth?Daily ? Results Recent Labs BLOOD COUNT & DIFF WBC 9.5 k/mm3 ()?? 11/21/2022 11:30 RBC 3.81 m/mm3 (Low)?? 11/21/2022 11:30 Hgb 12.6 Gm/dL ()?? 11/21/2022 11:30 Hct 39.2 % ()?? 11/21/2022 11:30 MCV 102.9 femtoliters (High)?? 11/21/2022 11:30 MCH 33.1 pg ()?? 11/21/2022 11:30 MCHC 32.1 g/dL (Low)?? 11/21/2022 11:30 Platelet Count 150 k/mm3 ()?? 11/21/2022 11:30 RDW-SD 55.4 femtoliters (High)?? 11/21/2022 11:30 MPV 10.6 femtoliters ()?? 11/21/2022 11:30 Nucleated RBC (Automated) 0.0 #/100 WBC'S ()?? 11/21/2022 11:30 Abs. NRBC 0.0 k/mm3 ()?? 11/21/2022 11:30 Abs. Neut 7.9 k/mm3 (High)?? 11/21/2022 11:30 Abs. Lymph 0.6 k/mm3 (Low)?? 11/21/2022 11:30 Abs. Mclean 0.8 k/mm3 ()?? 11/21/2022 11:30 Abs. Eo 0.1 k/mm3 ()?? 11/21/2022 11:30 Abs. Baso 0.1 k/mm3 ()?? 11/21/2022 11:30 Neut % 83.0 % (High)?? 11/21/2022 11:30 Lymph % 6.7 % (Low)?? 11/21/2022 11:30 Mclean % 8.4 % ()?? 11/21/2022 11:30 Eos % 0.8 % ()?? 11/21/2022 11:30 Baso % 0.5 % ()?? 11/21/2022 11:30 Imm Gran 0.6 % ()?? 11/21/2022 11:30 Abs. Imm Gran 0.1 k/mm3 ()?? 11/21/2022 11:30 ?? CARDIAC Nt-Probnp 90 pg/mL ()?? 11/21/2022 11:27 High Sensitivity Troponin (HSTnT) 13 ng/L ()?? 11/21/2022 12:41 ?? CHEM GENERAL Sodium 143 mmol/L ()?? 11/21/2022 11:27 Potassium 4.5 mmol/L ()?? 11/21/2022 11:27 Chloride 107 mmol/L ()?? 11/21/2022 11:27 Bicarbonate Level 24 mmol/L ()?? 11/21/2022 11:27 Anion Gap 12 ()?? 11/21/2022 11:27 Glucose Level 92 mg/dL ()?? 11/21/2022 11:27 BUN 15 mg/dL ()?? 11/21/2022 11:27 Creatinine-Blood 0.7 mg/dL ()?? 11/21/2022 11:27 Estimated GFR Creatinine 90 ML/MIN/1.73 M2 ()?? 11/21/2022 11:27 Calcium 9.0 mg/dL ()?? 11/21/2022 11:27 Phosphorus 3.2 mg/dL ()?? 11/21/2022 11:27 Magnesium 2.1 mg/dL ()?? 11/21/2022 11:27 Protein, Total 6.1 Gm/dL (Low)?? 11/21/2022 11:27 Albumin 4.3 Gm/dL ()?? 11/21/2022 11:27 AG Ratio 2.4 ()?? 11/21/2022 11:27 Alkaline Phosphatase 81 units/L ()?? 11/21/2022 11:27 Lipase 21 units/L ()?? 11/21/2022 11:27 AST (SGOT) 25 units/L ()?? 11/21/2022 11:27 ALT (SGPT) 23 units/L ()?? 11/21/2022 11:27 Bilirubin, Total 0.2 mg/dL ()?? 11/21/2022 11:27 ?? ENDOCRINE/TUMOR MARKER TSH 0.52 uIU/mL ()?? 11/21/2022 12:41 ?? HEME OTHER Hold Blue Top SPECIMEN DISCARDED AFTER 4 HOURS. ()?? 11/21/2022 11:30 ?? UA/URINALYSIS Appear/Color, Urine LIGHT YELLOW ()?? 11/21/2022 15:24 Specific Zenda, Urine 1.021 ()?? 11/21/2022 15:24 pH, Urine 6.5 ()?? 11/21/2022 15:24 Albumin, Urine TRACE (Abnormal)?? 11/21/2022 15:24 Glucose, Urine NEGATIVE ()?? 11/21/2022 15:24 Ketones, Urine 2+ (Abnormal)?? 11/21/2022 15:24 Bilirubin, Urine NEGATIVE ()?? 11/21/2022 15:24 Hemoglobin, Urine NEGATIVE ()?? 11/21/2022 15:24 Nitrite, Urine NEGATIVE ()?? 11/21/2022 15:24 Leukocyte, Urine 1+ (Abnormal)?? 11/21/2022 15:24 Urobilinogen NORMAL mg/dL ()?? 11/21/2022 15:24 WBC's, Urine 3 /HPF ()?? 11/21/2022 15:24 RBC's, Urine 1 /HPF ()?? 11/21/2022 15:24 Squamous Epith <1 /HPF ()?? 11/21/2022 15:24 Mucus SLIGHT /LPF ()?? 11/21/2022 15:24 Hold Urine Culture Testing available 48 hours from time of collection. ()?? 11/21/2022 15:24 ?? URINE OTHER Est Creatinine Clearance 59.26 mL/min ()?? 11/21/2022 20:56 ?? VIROLOGY COVID-19 by RT-PCR NEGATIVE ()?? 11/21/2022 15:24 ? Cardiology * Event Display: Cardiac Rhythm Strips Authored Date: Hospital Progress note * Gabe Henao RN: PERFORM, SIGN, VERIFY Event Display: Progress Note Hospital Authored Date: Patient: SUE BEJARANO Age: 72 years Sex: Female : 1950 Associated Diagnoses: None Author: Gabe Henao RN Findings Problem Related to Alteration in Cardiac Function (new) : Alteration in Cardiac Function/new 11/22/2022 8:00 EDT Alteration in Cardiac Status Related to Syncope Goals & Outcomes, Cardiac Status Pt will resume/maintain adequate cardiac output, Pt will resume/maintain adequate hemodynamic status, Pt will resume/maintain adequate respiratory function, Pt will resume/maintain intact neuro function, Pt will maintain adequate GI/ function appropriate for pt, Pt will maintain adequate nutrition status, Pt/caregiver will state understanding of diagnosis, Pt will not experience physical injury Cardiac Interventions Implemented Assess/monitor cardiac status, Assess/monitor neuro status, Assess/monitor respiratory status, Assess for tolerance of IV infusions; verify rate & dose, Call/Report variances in ECG to provider, Document & Monitor O2 Sats; Administer O2 as ordered, If no bowel movement in 3 days activate bowel regime, Assess pt for shortness of breath, lightheadedness, Obtain set of orthostatic vital signs on admission BH Goals/Interventions, Cardiac Yes Cardiac, Problem Start 11/22/2022 8:00 Reviewed Plan with, Cardiac Status Patient, Other: Family Patient Progression, Cardiac Status Patient progressing according to plan . Nursing Data Cardiac Data. : Cardiac Data. 11/22/2022 8:00 EDT Cardiovascular Symptoms None Nail Bed Color, Fingers Brinsmade Nail Bed Color, Toes Brinsmade Skin Temperature Upper Extremities Warm Skin Temperature Lower Extremities Warm Cardiac Rhythm Normal sinus rhythm Capillary Refill < 3 seconds Radial Pulse, Left Normal Radial Pulse, Right Normal Dorsalis Pedis Pulse, Left Normal Dorsalis Pedis Pulse, Right Normal lunchroom monitor Yes Cardiovascular WNL except . Gastrointestinal Data. : Gastrointestinal Data. 11/22/2022 8:00 EDT Gastrointestinal Symptoms None Abdomen Soft, Non-tender, Round Bowel Sounds All Quadrants Present Last Bowel Movement 11/21/2022 GI WNL except . Genitourinary Data. : Genitourinary Data. 11/22/2022 8:00 EDT WNL . Integumentary Data. : Integumentary Data. 11/22/2022 8:00 EDT Skin Abnormality Dry, Fragile, Other: Forhead bruise/ecchymotic Skin Integrity Not intact Sensory Perception No impairment Sensory Perception No impairment Moisture Rarely moist Activity Walks occasionally Activity Walks occasionally Mobility Slightly limited Mobility Slightly limited Nutrition Adequate Friction and Shear Problem Darin Score 18 Nursing Care Plan initiated/updated Yes Integumentary WNL except . Musculoskeletal Data. : Musculoskeletal Data. 11/22/2022 8:00 EDT Musculoskeletal Symptoms Weakness Musculoskeletal WNL except . Neurological Data. : Neurological Data. 11/22/2022 8:00 EDT Tongue Disposition Midline Neurological Symptoms Weakness or loss of muscle strength Level of Consciousness Full Consciousness Orientated to person, place, time Person, Place, Time, Event Hallucinations None Facial Symmetry Intact Characteristics of Speech Clear and normal Swallowing Difficulty None Pupil description, left Regular Pupil description, right Regular Pupil reaction, left Brisk Pupil reaction, right Brisk Strength LUE 4-Active movement against gravity & some resistance Strength RUE 4-Active movement against gravity & some resistance Strength LLE 4-Active movement against gravity & some resistance Strength RLE 4-Active movement against gravity & some resistance Tone LUE Normal Tone RUE Normal Tone LLE Normal Tone RLE Normal Sensation LUE Intact Sensation RUE Intact Sensation LLE Intact Sensation RLE Intact Movement LUE To command Movement RUE To command Movement LLE To command Movement RLE To command Gait Steady Tremors None Response Eye Opening Spontaneously Motor Response-Adult Obeys commands Verbal Response-Adult Oriented and converses Col[place]ain Coma Score 15 Stimulation None needed Pain Intensity 5 1 - 10 Pain Scale Score 5 Pain relief acceptable Yes Neuro WNL except Headache None Memory Intact Swallow - Neuro Normal . Patient Care Data. : Patient Care Data. 11/22/2022 8:00 EDT Turn and Reposition Every two hours, With partial assist Sequential Compression Device Not ordered TEDS Not indicated/Not ordered ID band on Yes Allergy band in place/verified Yes Blood Pressure/Venipuncture All 4 limbs may be used Call Steel in Reach-Ensure Ability to Use Yes Patient Instructed on Use of Call Steel Yes Alarms on (cardiac/respiratory) Yes Parameters on Alarm Checked Yes Standard Safety Bed alert on, Bed in low position, Non-slip footwear, Upper/Half-length side-rails up, Wheels locked Pt Ed-Learning: Person Taught Patient, Family member Pt Ed-Learning: Learning Readiness Yes, alert and oriented Pt Ed-Learning: Interventions Educated family member/caregiver Pt Ed-Learning: Learning Style Verbal Pain system assessment Detailed pain assessment Fall Elimination No impairment Fall Agitation/Anxiety/Depression No impairment Fall Related Sign/Symptom/Condition Syncope Plan:Fall Related Sign/Symptom/Condition Inform MD of signs & symptoms patient is experiencing,Collaborate with MD to manage signs & symptoms, Monitor & record blood pressure, both lying& sitting Fall Cognitive Limitations No impairment Fall Sensory and Physical Function History of Falls in the Past Six Months, Fatigued, Weak, Requires Staff Assistance with Transfer (Modified) Plan: Fall Sensory and Physical Function Encourage safe activities to maintain strength & mobility, Monitor patient's progress with physical activities Fall High Risk for Injury None of the above Total Falls Risk Score 13 (Modified) Fall Risk Level High Risk Falls Prevention Plan for High Risk Fall risk decal outside of patient's room, Fall mobile sales consultant patient's chart, Apply yellow high fall risk wrist band to wrist, Ensure patient has yellow non-skid slippers, Supervise patient in the bathroom & shower, Activate bed exit alarm system, Evaluate footwear & ensure patient has non-skid slippers, Activate alternate alarm: bed (i.e. TABS), Bed in lowest locked position, Place personal care items & call steel within reach, Instruct patient/family to request assistance with ambulatio, Instruct patient/family not to get up without assistance, Supervise the patient when ambulating or making transfers, Check that needs are met to minimize attempts to get up, Hourly rounds, Ensure safe & uncluttered environment, Communicate falls risk to all providers . Respiratory/Pulmonary Data. : Respiratory/Pulmonary Data. 11/22/2022 8:00 EDT Respiratory Symptoms None Respiratory effort Unlabored Chest expansion Symmetrical Accessory Muscles use No Cough Non-productive Respiratory pattern Regular Left Upper Lobe Breath Sounds Clear Right Upper Lobe Breath Sounds Clear Right Middle Lobe Breath Sounds Clear Left Lower Lobe Breath Sounds Clear Right Lower Lobe Breath Sounds Clear Respiratory distress None Respiratory Treatment(s) Cough and deep breathe Respiratory Treatment(s) Cough and deep breathe Respiratory WNL except . Vital Signs : VITAL SIGNS SECTION 11/22/2022 7:09 EDT Early Warning Score 0.00 11/22/2022 7:09 EDT Temperature 98.0 DegF Temperature Route Oral Pulse Rate 82 bpm Respiratory Rate 18 br/min Systolic Blood Pressure 143 mm Hg H Diastolic Blood Pressure 82 mm Hg Blood pressure sites Arm, left Mean Arterial Pressure 102 mm Hg Pulse Pressure 61 mm Hg Oxygen Saturation 98 % Mode of Delivery (Oxygen) Room air . Pain Data : PAIN SECTION 11/22/2022 8:00 EDT Pain Intensity 5 1 - 10 Pain Scale Score 5 Pain relief acceptable Yes . Evaluation See Biophysical Assessment in CIS for complete assessment. Will continue to monitor. * Carlo KIM, Dia: PERFORM, MODIFY, MODIFY, MODIFY, MODIFY, SIGN, VERIFY Event Display: Progress Note Hospital Authored Date: [id number] Patient: SUE BEJARANO Age: 72 years Sex: Female : 1950 Associated Diagnoses: None Author: Carlo KIM, Dia Findings Nursing Data Cardiac Data. : Cardiac Data. 11/21/2022 20:00 EDT Cardiovascular Symptoms None Nail Bed Color, Fingers Brinsmade Skin Temperature Upper Extremities Warm Skin Temperature Lower Extremities Warm Heart Sounds S1, S2 Heart Rhythm Regular Cardiac Rhythm Normal sinus rhythm Capillary Refill < 3 seconds Dorsalis Pedis Pulse, Left Normal Dorsalis Pedis Pulse, Right Normal Cardiovascular WNL except . Respiratory/Pulmonary Data. : Respiratory/Pulmonary Data. 11/21/2022 20:00 EDT Respiratory Symptoms None Respiratory effort Unlabored Respiratory Assessment Comment denies sob, respirations even and unlabored on room air Cough No cough Respiratory pattern Regular Left Upper Lobe Breath Sounds Clear Right Upper Lobe Breath Sounds Clear Right Middle Lobe Breath Sounds Clear Left Lower Lobe Breath Sounds Clear Right Lower Lobe Breath Sounds Clear Respiratory Treatment(s) Cough and deep breathe Respiratory WNL . Vital Signs : VITAL SIGNS SECTION 11/21/2022 23:00 EDT Temperature 98.3 DegF Temperature Route Oral Pulse Rate 81 bpm Respiratory Rate 17 br/min Systolic Blood Pressure 138 mm Hg Diastolic Blood Pressure 81 mm Hg Blood pressure sites Arm, left Pulse Pressure 57 mm Hg Oxygen Saturation 99 % Mode of Delivery (Oxygen) Room air 11/21/2022 21:25 EDT Early Warning Score 0.00 11/21/2022 21:23 EDT Respiratory Rate 18 br/min 11/21/2022 20:55 EDT Early Warning Score 0.00 11/21/2022 20:30 EDT Temperature 98.9 DegF Temperature Route Oral Pulse Rate 82 bpm Respiratory Rate 18 br/min Systolic Blood Pressure 133 mm Hg Diastolic Blood Pressure 70 mm Hg Blood pressure sites Arm, left Mean Arterial Pressure 91 mm Hg Pulse Pressure 63 mm Hg . Narrative/Incidental Asssumed care of patient at 1930, pt able to ambulate to unit bed without difficulty, steady gait, a/ox4, denies dizziness, following commands appropriately, afebrile, VS wnl. Respirations even and unlabored on room air, LS CTA, pt denies sob. NSR on tele, denies chest pain, +cms and pps to all extr emities, no edema. Right forehead bruising and bump noted, pt endorses headache, medicated with apap prn with good effect. ABD soft, nontender +BS to all quads, pt denies N/V/D, tolerating PO intake without difficulty. Voiding in BR without difficulty, denies dysuria. Educated on plan of care and call steel use, fall risk precautions in place, call steel within reach. See CIS for full assessment data and flow sheets, hourly rounding maintained, will continue monitoring as needed. . Note * Carmelina Guadarrama RN: PERFORM Event Display: Discharge/Transfer Note Hospital Authored Date: [id number] Nursing Discharge Note Entered On: 11/22/2022 10:54 EDT Performed On: 11/22/2022 10:53 EDT by Carmelina Guadarrama RN Nursing Discharge Note 2 Discharge Time : 11/22/2022 10:53 EDT Discharge Level of Care at Discharge : Home/Assisted/Foster Care Patient Left Unit Via : Wheelchair Patient Accompanied Off Unit with : Significant other DC Instructions Provided & Signed by Pt : Yes Patient Understands D/C Instructions : Yes Patient Instructions Discharge Signed : Yes Did Pt have Specialty Bed or Wound Vac : No Carmelina Guadarrama RN - 11/22/2022 10:53 EDT * Mele GUZMÁN, Juaquin Maria: PERFORM Event Display: Discharge/Transfer Note Hospital Authored Date: [id number] Patient: ??SUE BEJARANO ? Age:??72 Years?Sex:??Female?:??1950?? Patient Information Discharge Location: B Primary Care Physician: Flores GUZMÁN, Jason Villarreal Admit Date/Time: 11/21/22 09:10 Discharge Disposition Discharge Disposition: Home: No Services Discharge Diagnosis Hypertension (I10) Syncope (R55) ?? _ Discharge Medications Acetaminophen (Tylenol Extra Strength 500 mg oral tablet)?3?tab(s)?1,500?Milligram?By Mouth?2 times a day Cholecalciferol (Vitamin D3 2000 intl units oral capsule)?1?capsule?50?Microgram?By Mouth?Daily Chondroitin/Glucosamine/Methylsulfonylmethane (Glucosamine & Chondroitin with MSM)?1?tab(s)?By Mouth?2 times a day Clindamycin (clindamycin 300 mg oral capsule)?4?capsule?1,200?Milligram?By Mouth?Once?prior to dental appt Clonazepam (clonazePAM 1 mg oral tablet)?3?tab(s)?3?Milligram?By Mouth?Daily at bedtime Cyclosporine Ophthalmic (Restasis 0.05% ophthalmic emulsion)?1?Drops?Eyes, Both?Every 12 hours Fexofenadine (Chasidy)?1?tab(s)?By Mouth?Daily Folic Acid (folic acid 1 mg oral tablet)?1?Milligram?1?tablet?By Mouth?Daily Gabapentin (gabapentin 800 mg oral tablet)?2?tab(s)?1,600?Milligram?By Mouth?2 times a day Methotrexate (methotrexate 2.5 mg oral tablet)?4?tab(s)?10?Milligram?By Mouth?Every ?as needed?, Multivitamin?1?By Mouth?Daily ? Medications Started none Medications Discontinued none Doses Changed none PCP Follow-Up/Heads-Up please see below please consider outpatient echo and holter monitor - especially if symptoms recur Objective Assessment and Plan Assessment:??72-year-old female with history of hypertension, IBS, bullous pemphigoid, admitted with syncope ? Syncope (R55): Patient presented with an episode of syncope on 11/21 States that she was in the bathroom when she experienced symptoms of not feeling right, like she was about to pass out States that she has been physically well recently with no recent fevers, vomiting, diarrhea, infections She states, however, that she has been under a lot of emotional stress - her mother unfortunately just . CT head/neck showed no acute injuries She has no neuro deficit On telemetry - she had no arrhythmias orthostatic vital signs negative This seems to be an episode of vasovagal syncope in the setting of emotional stress patient very keen to go home - has to arrange will defer further investigations to PCP could consider echo and holter monitor (especially if symptoms recur) ?? no change in other medications ?? Code Status: Full code ? Vital Signs?? Temperature: 98 DegF (11/22/22 07:09:00) Temperature Route: Oral (11/22/22 07:09:00) Pulse Rate: 82 bpm (11/22/22 07:09:00) Pulse Rate, Lyin bpm (11/22/22 10:07:00) Systolic Blood Pressure, Lyin mm Hg (11/22/22 10:07:00) Diastolic Blood Pressure, Lyin mm Hg (11/22/22 10:07:00) Pulse Rate, Sittin bpm (11/22/22 10:07:00) Systolic Blood Pressure, Sittin mm Hg (11/22/22 10:07:00) Diastolic Blood Pressure, Sittin mm Hg (11/22/22 10:07:00) Pulse Rate, Standin bpm (11/22/22 10:07:00) Systolic Blood Pressure, Standin mm Hg (11/22/22 10:07:00) Diastolic Blood Pressure, Standin mm Hg (11/22/22 10:07:00) Respiratory Rate: 20 br/min (11/22/22 08:33:00) Systolic Blood Pressure:??143 mm Hg??High (11/22/22 07:09:00) Diastolic Blood Pressure: 82 mm Hg (11/22/22 07:09:00) Blood pressure sites: Arm, left (11/22/22 07:09:00) Mean Arterial Pressure: 102 mm Hg (11/22/22 07:09:00) Pulse Pressure: 61 mm Hg (11/22/22 07:09:00) Oxygen Saturation: 98 % (11/22/22 07:09:00) Mode of Delivery (Oxygen): Room air (11/22/22 07:09:00) Early Warning Score: 0 (11/22/22 08:36:00) ? . Physical Exam Gen: comfortable, well: HEENT: bruising to forehead Chest: CTA, no wheeze/crackles CVS: no M/G/R, no JVD Abdo: soft, non-tender Ext: no oedema, no cyanosis or clubbing Neuro: no deficit Psych: WNL Pending Results Add On Lab Order ordered on 11/21/2022 Add On Lab Order ordered on 11/22/2022 Patient Education Titles Understanding Vasovagal Syncope?? Follow-Up Appointments Added Follow Up ?Time Frame ?Comments Jason Tanner?1 to 2 weeks Home Health Face to Face ^HomeHealthFTF Results Discharge Labs BLOOD COUNT & DIFF WBC 9.5 k/mm3 ()?? 11/21/2022 11:30 RBC 3.81 m/mm3 (Low)?? 11/21/2022 11:30 Hgb 12.6 Gm/dL ()?? 11/21/2022 11:30 Hct 39.2 % ()?? 11/21/2022 11:30 MCV 102.9 femtoliters (High)?? 11/21/2022 11:30 MCH 33.1 pg ()?? 11/21/2022 11:30 MCHC 32.1 g/dL (Low)?? 11/21/2022 11:30 Platelet Count 150 k/mm3 ()?? 11/21/2022 11:30 RDW-SD 55.4 femtoliters (High)?? 11/21/2022 11:30 MPV 10.6 femtoliters ()?? 11/21/2022 11:30 Nucleated RBC (Automated) 0.0 #/100 WBC'S ()?? 11/21/2022 11:30 Abs. NRBC 0.0 k/mm3 ()?? 11/21/2022 11:30 Abs. Neut 7.9 k/mm3 (High)?? 11/21/2022 11:30 Abs. Lymph 0.6 k/mm3 (Low)?? 11/21/2022 11:30 Abs. Mclean 0.8 k/mm3 ()?? 11/21/2022 11:30 Abs. Eo 0.1 k/mm3 ()?? 11/21/2022 11:30 Abs. Baso 0.1 k/mm3 ()?? 11/21/2022 11:30 Neut % 83.0 % (High)?? 11/21/2022 11:30 Lymph % 6.7 % (Low)?? 11/21/2022 11:30 Mclean % 8.4 % ()?? 11/21/2022 11:30 Eos % 0.8 % ()?? 11/21/2022 11:30 Baso % 0.5 % ()?? 11/21/2022 11:30 Imm Gran 0.6 % ()?? 11/21/2022 11:30 Abs. Imm Gran 0.1 k/mm3 ()?? 11/21/2022 11:30 ?? CARDIAC Nt-Probnp 90 pg/mL ()?? 11/21/2022 11:27 High Sensitivity Troponin (HSTnT) 13 ng/L ()?? 11/21/2022 12:41 ?? CHEM GENERAL Sodium 143 mmol/L ()?? 11/21/2022 11:27 Potassium 4.5 mmol/L ()?? 11/21/2022 11:27 Chloride 107 mmol/L ()?? 11/21/2022 11:27 Bicarbonate Level 24 mmol/L ()?? 11/21/2022 11:27 Anion Gap 12 ()?? 11/21/2022 11:27 Glucose Level 92 mg/dL ()?? 11/21/2022 11:27 BUN 15 mg/dL ()?? 11/21/2022 11:27 Creatinine-Blood 0.7 mg/dL ()?? 11/21/2022 11:27 Estimated GFR Creatinine 90 ML/MIN/1.73 M2 ()?? 11/21/2022 11:27 Calcium 9.0 mg/dL ()?? 11/21/2022 11:27 Phosphorus 3.2 mg/dL ()?? 11/21/2022 11:27 Magnesium 2.1 mg/dL ()?? 11/21/2022 11:27 Protein, Total 6.1 Gm/dL (Low)?? 11/21/2022 11:27 Albumin 4.3 Gm/dL ()?? 11/21/2022 11:27 AG Ratio 2.4 ()?? 11/21/2022 11:27 Alkaline Phosphatase 81 units/L ()?? 11/21/2022 11:27 Lipase 21 units/L ()?? 11/21/2022 11:27 AST (SGOT) 25 units/L ()?? 11/21/2022 11:27 ALT (SGPT) 23 units/L ()?? 11/21/2022 11:27 Bilirubin, Total 0.2 mg/dL ()?? 11/21/2022 11:27 Vitamin B12 Level 1081 pg/mL ()?? 11/21/2022 11:27 Folic Acid Level 18.5 ng/mL ()?? 11/21/2022 11:27 ?? ENDOCRINE/TUMOR MARKER TSH 0.52 uIU/mL ()?? 11/21/2022 12:41 ? HEME OTHER Hold Blue Top SPECIMEN DISCARDED AFTER 4 HOURS. ()?? 11/21/2022 11:30 ? UA/URINALYSIS Appear/Color, Urine LIGHT YELLOW ()?? 11/21/2022 15:24 Specific Zenda, Urine 1.021 ()?? 11/21/2022 15:24 pH, Urine 6.5 ()?? 11/21/2022 15:24 Albumin, Urine TRACE (Abnormal)?? 11/21/2022 15:24 Glucose, Urine NEGATIVE ()?? 11/21/2022 15:24 Ketones, Urine 2+ (Abnormal)?? 11/21/2022 15:24 Bilirubin, Urine NEGATIVE ()?? 11/21/2022 15:24 Hemoglobin, Urine NEGATIVE ()?? 11/21/2022 15:24 Nitrite, Urine NEGATIVE ()?? 11/21/2022 15:24 Leukocyte, Urine 1+ (Abnormal)?? 11/21/2022 15:24 Urobilinogen NORMAL mg/dL ()?? 11/21/2022 15:24 WBC's, Urine 3 /HPF ()?? 11/21/2022 15:24 RBC's, Urine 1 /HPF ()?? 11/21/2022 15:24 Squamous Epith <1 /HPF ()?? 11/21/2022 15:24 Mucus SLIGHT /LPF ()?? 11/21/2022 15:24 Hold Urine Culture Testing available 48 hours from time of collection. ()?? 11/21/2022 15:24 ?? URINE OTHER Est Creatinine Clearance 59.26 mL/min ()?? 11/21/2022 20:56 ? VIROLOGY COVID-19 by RT-PCR NEGATIVE ()?? 11/21/2022 15:24 ? Imaging(s) ?CT Head/Brain W/O Contrast ?? 11/21/2022 12:11??by Aleksandr Lozoya MD ? IMPRESSION: ?? HEAD 1. No acute intracranial abnormality. 2. No skull fracture. ? CERVICAL SPINE: 1. There is no fracture. There is no focal bony lesion. 2. Normal alignment. ?? 3. Mild central spinal stenosis C3-C4. WSN: [id number] ?CT Cervical Spine W/O Contrast ?? 11/21/2022 12:11??by Aleksandr Lozoya MD ?Chest 2 Views Frontal and Lat ?? 11/21/2022 14:58??by Juaquin Sanchez MD ? IMPRESSION: ?? No acute abnormality. ?Elbow Min 3 Views Right ?? 11/21/2022 14:58??by Juaquin Sanchez MD ? IMPRESSION: ?? Mild degenerative changes but no fracture. WSN: [id number] ? 32_ minutes spent on discharge * Carmelina Guadarrama RN: PERFORM Event Display: Patient Education/Instruction Authored Date: [id number] Inpatient Adult Discharge Instructions [address] [address] Name: SUE BEJARANO : 1950 Visit: 11/21/2022 09:10:00 Current Date: 11/22/2022 10:40 Account: [id number] Inpatient Adult Discharge Instructions We would like to thank you for allowing us to assist you with your healthcare needs. The following includes patient education materials and information regarding your injury/illness. Our entire staffstrives to provide an excellent experience for our patients and their families. PLEASE ENSURE YOU FOLLOW-UP PER THE INSTRUCTIONS BELOW! ?? YOUR OPINION IS IMPORTANT TO US! Please complete the survey you may receive by mail or email. Your feedback will be used to make improvements to the healthcare experiences of our patients and their families. Surveys are administered by [employer] ?? If further treatment with your primary care physician or another doctor is recommended, it is important for you to keep the appointment. Call your primary care physician or return to the Emergency Department immediately if your condition worsens, fails to improve, or new symptoms develop. If you need to find a doctor, you can call [facility] for a referral at [phone] or toll free at [phone] or log in to [email or web address].. ?? You can view and manage your care through the patient portal or by using a health care sylvia of your choosing. [employer] is a website that allows you to securely view your medical information including your hospital discharge summary, office visit summaries, medications and follow-up visits. You can also request appointments, renew medications, and request access to your medical information using a health care sylvia of your choosing, or just ask a question. You can enroll at [email or web address] or register during your next office visit. You have been discharged from [facility], Patient Care Unit: D3B. If you have any questions regarding these instructions after you leave, please call us and we will be happy to assist you. [facility] Your Care Team Attending Physician Mele GUZMÁN, Juaquin Maria Discharging Providers Mele GUZMÁN, Juaquin Maria Reason for Admission felt fine waking up, walked to bathroom, onset of feeling dizzy/lightheaded. heard collapse, did not witness. out for about 2 minutes. came back around slowly. could not initially see out of right eye but this has resolved. had a BM after syncopal Your Diagnosis Syncope Syncope Hypertension Tests Performed Below is a partial list of the tests performed during your hospitalization. You may have had other tests and procedures not included in this list. Please discuss all test results with your provider. CBC w/ Differential Comprehensive Metabolic Panel COVID-19 (Novel Coronavirus), Rapid PCR FOLIC ACID Hold Blue Top Tube Lipase Magnesium Level Phosphorus Level ProBNP Troponin T, High Sensitivity TSH WITH REFLEX TO FT4 Urinalysis w/hold for Urine Culture VITAMIN B12 CT Cervical Spine W/O Contrast CT Head/Brain W/O Contrast XR Chest 2 Views Frontal and Lat XR Elbow Min 3 Views Right Primary Care Provider Jason Tanner MD Advance Directive Health Care Proxy on File Yes - Health Care Proxy Discharge Vitals Temperature: 98 DegF Height: 165 cm Pulse Rate: 82 bpm Weight: 50.2 kg Respiratory Rate: 20 br/min Body Mass Index:??18.44 kg/m2??Low Respiratory Rate: 20 br/min Body surface area: 1.52 Systolic Blood Pressure:??143 mm Hg??High ?? Diastolic Blood Pressure: 82 mm Hg ?? Oxygen Saturation: 98 % ?? Studies Pending All tests and labs ordered during this hospital stay have been completed unless listed below. Please discuss all pending results with your provider listed above in these instructions. ?? Add On Lab Order What to do next Instructions From Your Doctor Discharge Orders You Need to Schedule the Following Appointments Follow Up with??Jason Tanner When:??Within 1 to 2 weeks Where: [address] [place] [address] [facility] [address]- Business (1) Discharge Medications SUE BEJARANO :1950 Visit Date:11/21/2022 Medications: Please continue your medications until treatment is completed or stopped by your provider. Medications not listed below should be discontinued. Discuss any questions related to medications with your provider. What How Much When Instructions Next Dose Unchanged Acetaminophen (Tylenol Extra Strength 500 mg oral tablet) 3 tab(s) Oral Twice a day 11/22/22 - PM Unchanged Cholecalciferol (Vitamin D3 2000 intl units oral capsule) 1 capsule Oral Daily 11/23/22??- AM Unchanged Chondroitin/ Glucosamine/ Methylsulfonylmethane (Glucosamine & Chondroitin with MSM) 1 tab(s) Oral Twice a day 11/22/22 - PM Unchanged Clindamycin (clindamycin 300 mg oral capsule) 4 capsule Oral Once prior to dental appt ?? Unchanged Clonazepam (clonazePAM 1 mg oral tablet) 3 tab(s) Oral Daily at Bedtime 11/22/22 - PM Unchanged Cyclosporine Ophthalmic (Restasis 0.05% ophthalmic emulsion) 1 Drops Both eyes Every 12 hours 11/22/22 - PM Unchanged Fexofenadine (Chasidy) 1 tab(s) Oral Daily 11/23/22??- AM Unchanged Folic Acid (folic acid 1 mg oral tablet) 1 tab(s) Oral Daily 11/23/22??- AM Unchanged Gabapentin (gabapentin 800 mg oral tablet) 2 tab(s) Oral Twice a day 11/22/22 - PM Unchanged Methotrexate (methotrexate 2.5 mg oral tablet) 4 tab(s) Oral Every as needed for , Unchanged Multivitamin 1 Oral Daily 11/23/22??- AM Test Results Below is a partial list of the most recent Laboratory test results done prior to this discharge. You may have had other tests and procedures not included in this list. Please discuss all test resultswith your provider. Est Creatinine Clearance - 59.26 mL/min (11/21/2022) CBC w/ Differential (11/21/2022) ???WBC - 9.5 k/mm3???RBC - 3.81 m/mm3???Hgb - 12.6 Gm/dL???Hct - 39.2 %???MCV - 102.9 femtoliters???MCH - 33.1 pg???MCHC - 32.1 g/dL???Platelet Count - 150 k/mm3???RDW-SD - 55.4 femtoliters???MPV - 10.6 femtoliters???Nucleated RBC (Automated) - 0.0 #/100 WBC'S???Abs. NRBC - 0.0 k/mm3???Abs. Neut - 7.9 k/mm3???Abs. Lymph - 0.6 k/mm3???Abs. Mclean - 0.8 k/mm3???Abs. Eo - 0.1 k/mm3???Abs. Baso - 0.1 k/mm3???Neut % - 83.0 %???Lymph % - 6.7 %???Mclean % - 8.4 %???Eos % - 0.8 %???Baso % - 0.5 %???Imm Gran - 0.6 %???Abs. Imm Gran - 0.1 k/mm3 Comprehensive Metabolic Panel (11/21/2022) ???Sodium - 143 mmol/L???Potassium - 4.5 mmol/L???Chloride - 107 mmol/L???Bicarbonate Level - 24 mmol/L???Anion Gap - 12???Glucose Level - 92 mg/dL???BUN - 15 mg/dL???Creatinine-Blood - 0.7 mg/dL???Estimated GFR Creatinine - 90 ML/MIN/1.73 M2???Calcium - 9.0 mg/dL???Protein, Total - 6.1 Gm/dL???Albumin - 4.3 Gm/dL???AG Ratio - 2.4???Alkaline Phosphatase - 81 units/L???AST (SGOT) - 25 units/L???ALT (SGPT) - 23 units/L???Bilirubin, Total - 0.2 mg/dL COVID-19 (Novel Coronavirus), Rapid PCR (11/21/2022) ???COVID-19 by RT-PCR - NEGATIVE FOLIC ACID (11/21/2022) ???Folic Acid Level - 18.5 ng/mL Hold Blue Top Tube (11/21/2022) ???Hold Blue Top - SPECIMEN DISCARDED AFTER 4 HOURS. Lipase (11/21/2022) ???Lipase - 21 units/L Magnesium Level (11/21/2022) ???Magnesium - 2.1 mg/dL Phosphorus Level (11/21/2022) ???Phosphorus - 3.2 mg/dL ProBNP (11/21/2022) ???Nt-Probnp - 90 pg/mL Troponin T, High Sensitivity (11/21/2022) ???High Sensitivity Troponin (HSTnT) - 13 ng/L TSH WITH REFLEX TO FT4 (11/21/2022) ???TSH - 0.52 uIU/mL Urinalysis w/hold for Urine Culture (11/21/2022) ???Appear/Color, Urine - LIGHT YELLOW???Specific Zenda, Urine - 1.021???pH, Urine - 6.5???Albumin, Urine - TRACE???Glucose, Urine - NEGATIVE???Ketones, Urine - 2+???Bilirubin, Urine - NEGATIVE???Hemoglobin, Urine - NEGATIVE???Nitrite, Urine - NEGATIVE???Leukocyte, Urine - 1+???Urobilinogen - NORMAL? ?WBC's, Urine - 3 /HPF? ?RBC's, Urine - 1 /HPF? ?Squamous Epith - <1 /HPF? ?Mucus - SLIGHT? ?Hold Urine Culture - Testing available 48 hours from time of collection. VITAMIN B12 (11/21/2022) ???Vitamin B12 Level - 1081 pg/mL Allergies (NKA means No Known Allergies) Adhesive Bandage??(PULLS MY SKIN OFF, TRANSPORE TAPE) Cymbalta??(VOMITING) Demerol HCl??(O2 LEVEL LOW DIFFICULTY BREATHING) amitriptyline??(dizzy metal taste shakey N&V) trazodone??(SWELLING DIFFICULTY BREATHING RAPID PULSE DIARRHEA) Problems Active Problems??(7) Bullous pemphigoid?? Capsular contracture of breast implant?? Cervical disc disorder with myelopathy?? Hypertension?? IBS (irritable bowel syndrome)?? Left knee pain?? Underweight?? Education Materials Below is the list of Educational Leaflet Providered with your Discharge Instructions. Understanding Vasovagal Syncope?? Valuables and Belongings I fully understand and agree that [facility] accepts no responsibility for all my personal property including clothing, toilet articles, radios, jewelry, dentures, hearing aids, rings, money, or any other property that is in my possession or is brought to me after admission. I understand certain valuables may be placed in a hospital safe for a short period of time. I understand that the hospital is not liable for loss or damage due to accident, fire, or other natural occurrence while said property is in the safe. I accept full responsibility for any personal property that I keep with me, and will not hold the hospital responsible in case of loss or disappearance. I acknowledge that i have been encouraged to send valuables and belongings home. ?? Date for Pt to Sign Valuables/Belongings: 11/21/22 19:41:00 ?? Other Discharge Information ? Pulmonary Rehab Status?? Pulmonary Rehab Discharge Status?? Respiratory Rate: 20 br/min Respiratory Rate: 20 br/min ? Common Emergency Awareness Tips IS IT A STROKE? Act FAST and Check for these signs: FACE Does the face look uneven? ARM Does one arm drift down? SPEECH Does their speech sound strange? TIME Call at any sign of stroke ?? Heart Attack Signs Chest discomfort: Most heart attacks involve discomfort in the center of the chest and lasts more than a few minutes, or goes away and comes back. It can feel like uncomfortable pressure, squeezing, fullness or pain. Discomfort in upper body: Symptoms can include pain or discomfort in one or both arms, back, neck, jaw or stomach. Shortness of breath: With or without discomfort. Other signs: Breaking out in a cold sweat, nausea, or lightheaded. Remember, MINUTES DO MATTER. If you experience any of these heart attack warning signs, call to get immediate medical attention! ?? Smoking can increase your chances of developing chronic health problems and can cause harmful effects to other family members in your house. If you smoke, you are strongly encouraged to quit. Please call [employer] [facility] at [phone] or [phone] ([phone]) or log in to [email or web address] for referrals to smoking cessation programs. ?? 181 Suicide & Crisis Lifeline is available 09/12 if you or someone you know needs to find a reason to keep living. By calling 137 you'll be connected to a skilled, trained counselor at a crisis center in your area. INPATIENT DISCHARGE INSTRUCTIONS SIGNATURE PAGE SUE BEJARANO Location:[facility] Registration Date and Time:11/21/2022 09:10 EDT Primary Care Physician: Jason Tanner MD, Attending Physician: Mele GUZMÁN, Juaquin Maria, I SUE BEJARANO, have received the above patient education materials/instructions and have verbalized understanding. If ambulance or transport services are being used I further acknowledge being given a choice of service. ?? If you need to contact me, please call me at this number: . Patient/Shank Stitcher Name: Patient/Shank Stitcher Signature: Relationship to Patient: Witness Name/Signature: Date: * Juaquin Shabazz MD: PERFORM, SIGN, VERIFY Event Display: Patient Education Handout Authored Date: [id number] * Juaquin Shabazz MD: PERFORM Event Display: Patient Education Leaflets Authored Date: [id number] Understanding Vasovagal Syncope ?? 32236 Understanding Vasovagal Syncope Vasovagal syncope is fainting caused by a complex nerve and blood vessel reaction in the body. It'sthe result of an abnormal reflex in the body and is often called reflex syncope. It???s the most common cause of fainting. Unlike other causes of fainting, it???s not a sign of a problem with the heart or brain. ?? How to say it THG-cva-FQHDhaval NUNEZ-oh-pee How vasovagal syncope happens Many nerves connect with your heart and blood vessels. These nerves help control the speed and force of your heartbeat. They also regulate blood pressure. They control whether your blood vessels should be more open or more closed. Usually these nerves work together so you always get enough blood to your brain. In certain cases, these nerves may give a wrong signal or be slow to respond to input received from the body. This maycause your blood vessels to open wide or cause them not to get more narrow when they need to. At the same time, your heartbeat may slow down. Blood can start to pool in your legs, and not enough of it may reach the brain. If that happens, you may briefly lose consciousness. When you lie down or fall down, blood flow to the brain resumes. What causes vasovagal syncope? Many triggers can cause vasovagal syncope, such as: ??? Standing for long periods ??? Too much heat ??? Intense emotion, such as fear ??? Intense pain ??? The sight of blood or a needle ??? Exercising for a long time ??? Dehydration Older adults may have additional triggers, such as: ??? Urinating ??? Swallowing ??? Coughing ??? Having a bowel movement Symptoms of vasovagal syncope Fainting is the main symptom of vasovagal syncope. You may have symptoms before fainting, such as: ??? Nausea ??? Warm, flushed feeling ??? Face that turns pale ??? Sweaty palms ??? Feeling dizzy ??? Blurred vision If you lie down and elevate your legs at the first sign of these symptoms, you will often be able to prevent fainting. Not everyone notices symptoms before fainting, however. When a person does faint, lying down restores blood flow to the brain. Consciousness should return fairly quickly. You might not feel normal for a little while after you faint. You might feel depressed or fatigued for a short time. You may even feel nauseous afterward and vomit. Some people have only one or two episodes of vasovagal syncope in their life. For others, it happens more often and with no warning. Diagnosing vasovagal syncope Your healthcare provider will ask about your health history and your symptoms. They will give you aphysical exam. Your blood pressure may be measured while lying down, seated, and standing. You may also have an electrocardiogram (ECG). This is a simple test that looks at the heart???s rhythm. You may be checked for other possible causes of fainting. You may have other tests, such as: ??? Continuous portable ECG monitoring, to look at heart rhythms over time, such as with a Holter or event monitor ??? Echocardiogram, to look at the blood flow in the heart and the heart???s motion ??? Exercise stress testing, to see how your heart does during exercise ??? Blood tests to check forsigns of disease If these tests are normal, you may have a tilt table test. For this test, you lie down on a platform with straps around you to keep you from sustaining an injury. Your heart rate and blood pressure are measured while you are lying down. The platform is then tilted upright. Your heart rate and bloodpressure are measured again. If you have vasovagal syncope, you may faint during the upward tilt. Sometimes medicines that increase heart rate and the force of heart contractions or decrease blood pressure are used to try and provoke a syncopal episode. There are many causes of syncope. Some causes are not dangerous. In older persons, unexplained syncope can be a sign of a serious infection or a heart attack. Call 911 or seek medical attention rightaway to be evaluated, especially if there has been a fall and injury with the syncope. You should not drive yourself to the hospital or emergency department after a syncopal episode for the safety ofyourself and other drivers and passengers. Have someone drive you. Your provider may restrict your driving until the cause of the syncope is better understood and to make sure the syncope does not become chronic, or if it is unpredictable. Last Reviewed Date: 2021 ?? [id number] [employer]. All rights reserved. This information is not intended as a substitute for professional medical care. Always follow your healthcare professional's instructions. ?? Patient Care team information Care Team Personnel Name: Jason Tanner MD Position: [facility] Physician - Endocrinology Member Role: PCP Address: Address: [address] [place] [id number]- Name: Sun Mayen RN Position: [facility] RN Member Role: Primary Care Nurse Name: Elizabeth Silva RN Position: [facility] RN Supv Member Role: Primary Care Nurse Name: Dia Matos RN Position: [facility] RN Member Role: Primary Care Nurse Name: Migue Jeronimo RN Position: [facility] RN Member Role: Primary Care Nurse Name: Kenrick COFFEY Attending Position: [facility] ED Medicine MD Name: Cm Garcias Position: [facility] ED RN W/OE and Tasks Member Role: Patient Care Provider Name: Leon Toribio MD Position: [facility] Resident Member Role: ED Resident Address: Address: [address] [place] [address] [place] [address]- Care Team Related Persons Name: EMILY OLMOS Address: home [address] [place] [address] Name: STACEY BEJARANO Address: home [address] [place] [id number]
--- OUTSIDE RECORDS SUMMARY | 2023-12-05 07:16 | XMS_ITS | Continuity of Care Document ---
Author Organization [facility] Address [address] [place] [address]- Care Team Providers Care Hardwood Flooring Specialist Name Role Phone Flores GUZMÁN, Jason Villarreal Primary Care Physician Encounter [facility] Date(s): 04/24/23 - 05/24/[address] [address]- Attending Physician: Krupa Penny Admitting Physician: AdmKrupa gonzalez Referring Physician: Admtr ArTurner Allergies, Adverse Reactions, Alerts Substance Reaction Severity [...] 05/13/19 Recorde d 1Result Comment: given at [facility] Chasidy 1 tablet, By Mouth, Daily, [...] Team Personnel Name: Jason Tanner MD Position: [facility] Physician - Endocrinology Member Role: PCP Address: Address: [address] [place] [address] [facility] [address] Name: Sun Mayen RN Position: [facility] RN Member Role: Primary Care Nurse Name: Elizabeth Silva RN Position: [facility] RN Supv Member Role: Primary Care Nurse Name: Dia Matos RN Position: S RN Member Role: Primary Care Nurse Name: Migue Jeronimo RN Position: S RN Member Role: Primary Care Nurse Care Team Related Persons Name: EMILY OLMOS Address: home [address] [place] [address] Name: STACEY BEJARANO Address: home [address] [place] [address]
[2023-12-05 07:54] VITALS: BP 134/61; PULSE 81; RESP 15; TEMP 36.1; O2SAT 98; BMI 19.0
[2023-12-05] MEDS: Scopolamine 1.5 MG PATCH.TD.3 TRANSDERMA (07:57)
[2023-12-05] MEDS: Lactated Ringers 1,000 ML 100 ML IVCONT (08:03)
[2023-12-05 10:06] VITALS: BP 127/58; PULSE 81; RESP 16; TEMP 36.1; O2SAT 96
--- NOTE | 2023-12-05 10:07 | PM.OP ---
Brief Operative Note Date of Service: 12/05/23 Pre-op diagnosis: Right knee medial meniscus tear, right knee lateral meniscus tear, right knee degenerative joint disease Post-op diagnosis: same Procedure: Right knee arthroscopic partial medial and lateral meniscectomies, right knee arthroscopic chondroplasty of the undersurface of the patella as well as the medial femoral condyle Implants: none Surgeon: Popeye Ghosh MD Anesthesia: GLMA Was an Instrumentation And Controls Designer used for this Procedure?: No Estimated blood loss (mL): 10 Pathology: none sent Condition: stable Disposition: PACU
--- NOTE | 2023-12-05 10:08 | P.OP_ITS ---
Operative Note Operative Note Date of Service: 12/05/23 Narrative: After the patient was identified as Kyleigh Evangelista and her right knee was initialed by myself they were brought to the operating room where general anesthesia was induced by the anesthesiologist in routine fashion. The patient was given 2 g of IV Ancef for infection prophylaxis. A formal time-out was completed. The patient's right lower extremity was prepped and draped in sterile fashion. Marcaine with epinephrine was injected into the planned incision sites as well as their right knee joint. A # 11 scalpel blade was used to make an anterolateral portal 1 cm proximal to the joint line and 1 cm lateral to the patellar tendon. Blunt trocar technique was used into the suprapatellar pouch with the knee in extension. Diagnostic arthroscopy showed multiple bands of thickened plica which would be excised at the end of the procedure. There were no loose bodies or abnormalities found in either the medial or lateral gutters. There were diffuse grades 2 and 3 degenerative changes of the undersurface of the patella as well as grade 2 degenerative changes of the trochlear groove. The patient's knee was flexed to 45 degrees and a valgus force was placed upon it. The medial compartment was entered. An anteromedial portal was made 1 cm proximal to the joint line and 1 cm medial to the patellar tendon. Probing of the medial meniscus showed a radial tear of the anterior horn. A partial medial meniscectomy was performed using the arthroscopic shaver. Following the partial meniscectomy the remainder of the meniscus tissue was stable. There were diffuse grades 2 and 3 degenerative changes of the med ial femoral condyle as well as diffuse grades 1 and 2 degenerative changes of the medial tibial plateau. The articular surface of the medial femoral condyle was made smooth using the arthroscopic shaver. The articular surface of the medial tibial plateau was already smooth so no chondroplasty was indicated. The patient's knee was then placed into a neutral position. There was no injury to the anterior cruciate ligament. The patient's knee was then placed into the figure of 4 position and the lateral compartment was entered. There were minimal degenerative changes of the lateral femoral condyle and lateral tibial plateau. There was a radial tear of the anterior horn of the lateral meniscus. A partial lateral meniscectomy was performed using the arthroscopic shaver. Following the partial meniscectomy the remainder of the meniscus tissue was stable. The patient's knee was once again brought into extension and the suprapatellar pouch was entered. The arthroscopic shaver and the ArthroCare Wand were used to excise the thickened bands of plica. The undersurface of the patella was then made smooth using the arthroscopic shaver. The articular surface of the trochlear groove was already smooth so no chondroplasty was indicated. The knee joint was irrigated and then drained. All arthroscopic instruments were removed. The 2 portals were closed with 3-0 nylon interrupted suture. The knee joint was injected with Marcaine. Dry sterile dressing and Sheng bandages were placed over the patient's knee. The patient was awoken and extubated in the operating room. They were transferred to the recovery room in stable condition.
[2023-12-05 10:11] VITALS: BP 121/59; PULSE 74; RESP 16; O2SAT 97
[2023-12-05 10:16] VITALS: BP 129/56; PULSE 71; RESP 16; O2SAT 97
[2023-12-05] MEDS: cefTRIAXone sodium 1 GM in 0.9 % Sodium Chloride 50 ML IV (10:16)
[2023-12-05 10:21] VITALS: BP 125/58; PULSE 79; RESP 16; O2SAT 98
--- NOTE | 2023-12-05 10:23 | PC.NURSE ---
24hr update documented on paper
[2023-12-05 10:36] VITALS: BP 132/61; PULSE 83; RESP 16; O2SAT 98
== END 2023-12-05 11:00 | disposition home or self-care (01) ==
PROVIDERS: PCP Internal Medicine Endocrinology, Diabetes & Metabolism; Visit Provider Orthopaedic Surgery
PROC: (CPT 29870; principal; 2023-12-05 09:00)
DX: S83.241A Other tear of medial meniscus, current injury, right knee, initial encounter (principal); S83.281A Other tear of lateral meniscus, current injury, right knee, initial encounter; W19.XXXA Unspecified fall, initial encounter; Y93.9 Activity, unspecified; Y92.9 Unspecified place or not applicable; Y99.8 Other external cause status; M17.11 Unilateral primary osteoarthritis, right knee; M67.51 Plica syndrome, right knee; Z79.899 Other long term (current) drug therapy; Z88.5 Allergy status to narcotic agent; Z88.8 Allergy status to other drugs, medicaments and biological substances; Z98.890 Other specified postprocedural states; Z87.891 Personal history of nicotine dependence
CPT/HCPCS: 29880; 29876; J0131; J0171; J0690; J0696; J1100; J1885; J2405; J2704; J2795; J3010

== ENCOUNTER → 2023-12-05 07:13 | Outpatient (BNV) | payer MEDICARE, SELFPAY | PROVIDERS: PCP Internal Medicine Endocrinology, Diabetes & Metabolism; Visit Provider Orthopaedic Surgery | DX: S83.241A Other tear of medial meniscus, current injury, right knee, initial encounter (principal); S83.281A Other tear of lateral meniscus, current injury, right knee, initial encounter | CPT/HCPCS: 29880 ==

== ENCOUNTER 2023-12-18 12:44 | Outpatient (AMB) | payer MEDICARE, SELFPAY ==
--- NOTE | 2023-12-18 12:55 | MHC.OFFVIS ---
Intake Visit Reasons: PO RT knee 12/05/23 Intake Note: Kyleigh a 73 year old female who presents today for a post operative right knee on 12/05/23 Patient reports she is doing well, she has been experiencing pain in her right lower back that radiates down her buttock to her knee, states believes its sciatica. Allergies meperidine [From Demerol] Allergy (Severe, Verified 12/22/23 14:01) hard to breathe trazodone Allergy (Severe, Verified 12/22/23 14:01) Swelling, H/A, SOB, diarrhea amitriptyline Allergy (Intermediate, Verified 12/22/23 14:01) dizzy, sick to stomach, metal taste duloxetine [From Cymbalta] Adverse Reaction (Intermediate, Verified 12/22/23 14:01) Vomiting HPI HPI PO RT knee 12/05/23 DR: Details: Kyleigh is a 73-year-old female who presents today for postoperative evaluation of right knee , 12/05/2023 She is scheduled for right knee surgery with Dr. Ghosh. She reports that she is doing well. She states that she still experiencing right-sided lower back pain which is radiating down to her buttock to her knee. She might have thought she had sciatica problems. [facility] Medical History Head injury (~08/2023) Headache Numbness and tingling History of fall (08/18/23) Seasonal allergies Arthritis PONV (postoperative nausea and vomiting) Anxiety Surgical History Hx of basal cell carcinoma excision History of total left knee replacement (TKR) (~2010) History of appendectomy Hx of hand surgery Hx of shoulder surgery (06/19/22) Social History Household Members: Spouse Housing: House Are you a primary emergency care tech to a significant other at home: Yes (older brother in [place]) Do you presently have visiting nurse or other home services: No Patient Tobacco Use Status: Former Tobacco user Tobacco use type: Cigarette Current occupational status: retired Current occupation: Right hand dominant Review of Systems Const All systems reviewed & are unremarkable except as noted in HPI and below Physical Exam Const General: cooperative, healthy appearing, comfortable and no acute distress Orientation/consciousness: patient oriented x3 Neck Neck: Yes normal visual inspection and Yes no JVD Chest Chest palpation & inspection: normal inspection of the chest Resp Effort & Inspection: normal respiratory effort Auscultation: clear to auscultation bilaterally, crackles (no), rales (no), rhonchi (no) and wheezes (no) Cardio Jugular venous distension: no JVD Rate: regular rate Rhythm: regular rhythm Heart sounds: S1 normal heart sound present, S2 normal heart sound present, Murmur heart sound present (no) and Rub heart sound present (no) Neuro General: patient oriented x3 Extrem Other: Right knee: Incision is clean, dry and intact. No erythema or drainage. Range of motion is 0 to 95 degrees. Calf supple and nontender. NVI. General: Yes normal to inspection, Yes no pedal edema and Yes no calf tenderness Psych Appearance: grossly normal Mental Status: mental status grossly normal Speech and movement: Normal speech and movement present Results Reviewed Results Reviewed: Brief Operative Note Date of Service: 12/05/23 Pre-op diagnosis: Right knee medial meniscus tear, right knee lateral meniscus tear, right knee degenerative joint disease Post-op diagnosis: same Procedure: Right knee arthroscopic partial medial and lateral meniscectomies, right knee arthroscopic chondroplasty of the undersurface of the patella as well as the medial femoral condyle Implants: none Surgeon: Popeye Ghosh MD Assessment & Plan Assessment & Plan (1) Osteoarthritis of left knee: Code(s): M17.12 - Unilateral primary osteoarthritis, left knee Category: Medical (2) Tear of meniscus of left knee: Code(s): S83.207A - Unspecified tear of unspecified meniscus, current injury, left knee, initial encounter Category: Medical Plan Sutures removed today. Steri strips applied. I did offer a formal physical therapy referral. However, she declined and would like to do exercises on her own at home and I encouraged her to avoid deep bending, twisting, kneeling or pivoting twisting motions for the next 4 to 6 weeks and she will increase activities as tolerated and see us back in [address] Ghosh or sooner if needed. Patient Instructions: Scribed for Evangelist Mcconnell PA-C, by Constantine Mtz chief medical physicist, on 12/18/2023 at 1:00 PM EST. I, Evangelist Mcconnell PA-C, have personally reviewed and agree with the information entered by the scribe. Coding Level of Care Code Global (85899) Diagnoses Osteoarthritis of left knee M17.12 Tear of meniscus of left knee S83.207A
== END 2023-12-18 13:08 | disposition home or self-care (01) ==
PROVIDERS: PCP Internal Medicine Endocrinology, Diabetes & Metabolism; Visit Provider Physician Assistant
DX: M17.12 Unilateral primary osteoarthritis, left knee (principal); S83.207A Unspecified tear of unspecified meniscus, current injury, left knee, initial encounter
CPT/HCPCS: 99024

== ENCOUNTER → 2023-12-18 12:44 | Outpatient (BNVA) | payer MEDICARE, SELFPAY | PROVIDERS: PCP Internal Medicine Endocrinology, Diabetes & Metabolism; Visit Provider Physician Assistant | DX: M17.12 Unilateral primary osteoarthritis, left knee (principal); S83.207A Unspecified tear of unspecified meniscus, current injury, left knee, initial encounter; X58.XXXA Exposure to other specified factors, initial encounter; Y93.9 Activity, unspecified; Y92.9 Unspecified place or not applicable; Y99.9 Unspecified external cause status | CPT/HCPCS: 99212 ==

== ENCOUNTER 2023-12-22 06:59 | Outpatient (REF) | payer MEDICARE, SELFPAY ==
--- NOTE | ~2023-12-22 | XR_ITS ---
EXAMINATION: XR KNEE, LEFT CLINICAL INFORMATION: Pain. COMPARISON: None available. TECHNIQUE: AP, lateral and sunrise views of the left knee are submitted. FINDINGS: There is bony demineralization. Prosthetic components of the total knee arthroplasty are appropriately aligned without periprosthetic fracture or abnormal lucency. No component migration. No joint effusion. XR/XR knee LT 3V IMPRESSION: Appropriate alignment of the left total knee arthroplasty without evidence of complications. Electronically signed by: Girish Portillo MD 01/12/2024 04:13 PM EDT
== END 2023-12-22 07:00 | disposition home or self-care (01) ==
LOC: HO.HOSX 06:59
PROVIDERS: Visit Provider Orthopaedic Surgery
DX: M25.562 Pain in left knee (principal); Z96.652 Presence of left artificial knee joint
CPT/HCPCS: 73562; 99212

== ENCOUNTER 2023-12-22 13:30 | Outpatient (AMB) | payer MEDICARE, SELFPAY ==
--- NOTE | 2023-12-22 13:31 | MHC.OFFVIS ---
Vital Signs 12/22/23 14:02 Height 5 ft 5 in Weight 114 lb BMI 19.0 Intake Visit Reasons: Newprob-Left knee pain/popping noises Intake Note: Kyleigh is a 73 yo female who presents with complaints of pain in her left knee. The patient 1st underwent left total knee replacement surgery by Dr. Pierce in 2007. The patient states that she had continued pain following that surgery. She then underwent left total knee replacement revision surgery by Dr. Alvares in [place] in 2010. The patient states that following that 2nd surgery her pain continued. She denies any fevers or chills. She has taken Tylenol which gives her mild relief. She recently twisted her knee which seemed to aggravate her pain. The patient wishes to hold off on further surgery if at all possible. Allergies meperidine [From Demerol] Allergy (Severe, Verified 12/22/23 14:01) hard to breathe trazodone Allergy (Severe, Verified 12/22/23 14:01) Swelling, H/A, SOB, diarrhea amitriptyline Allergy (Intermediate, Verified 12/22/23 14:01) dizzy, sick to stomach, metal taste duloxetine [From Cymbalta] Adverse Reaction (Intermediate, Verified 12/22/23 14:01) Vomiting Medication List - Last Reconciled 12/23/23 by Popeye Ghosh MD acetaminophen 1,500 mg PO BID PRN betamethasone, augmented 0.05 % appl topical BID cholecalciferol (vitamin D3) 50 mcg PO DAILY clonazepam 3 mg PO BEDTIME PRN cyclosporine 0.05% (Restasis) 1 drp ophthalmic (eye) Q12H fexofenadine (Chasidy Allergy) 180 mg PO DAILY folic acid 1 mg PO DAILY gabapentin 1,600 mg PO BID yujzbzgf-xrbnssnxlw-mm glycn-C 500-400 mg 1 cap PO BID methotrexate sodium 7.5 mg PO .Q FRIDAY multivitamin 1 tab PO DAILY PFSH Medical History Head injury (~08/2023) Headache Numbness and tingling History of fall (08/18/23) Seasonal allergies Arthritis PONV (postoperative nausea and vomiting) Anxiety Surgical History Hx of basal cell carcinoma excision History of total left knee replacement (TKR) (~2010) History of appendectomy Hx of hand surgery Hx of shoulder surgery (06/19/22) Social History Household Members: Spouse Housing: House Are you a primary managed care liaison to a significant other at home: Yes (older brother in [place]) Do you presently have visiting nurse or other home services: No Patient Tobacco Use Status: Former Tobacco user Tobacco use type: Cigarette Current occupational status: retired Current occupation: Right hand dominant Physical Exam Vital Signs: BMI result Body Mass Index 19.0 Const Other: Well-nourished well-developed very friendly female awake alert and oriented x3 in no acute distress Extrem Other: Left knee examination shows that the surgical incision is well healed, no erythema, full active extension flexion to 110 degrees, her patella tracks well, no instability Results Reviewed Results Reviewed: X-rays of the patient's left knee show a total knee arthroplasty in good position with no signs of loosening, no acute bony abnormalities Assessment & Plan Assessment & Plan (1) Left knee pain: Code(s): M25.562 - Pain in left knee Category: Medical Plan Ms. Evangelista presents with continued left knee pain after undergoing revision left total knee replacement surgery in [place] in 2010. The patient does not have any clinical indication of infection. I will arrange for her to have an evaluation by Dr. Hooks here in our pain management Department to see if she is a candidate for a nerve block procedure. She will follow up with me after that appointment. Feel free to call me at any time should questions regarding her orthopedic management arise. I spent 20 minutes in reviewing the patient's records and imaging studies, seeing the patient and documenting in the medical record. Orders: Orders XR knee LT 3V 12/22/23 M25.562 - Pain in left knee Referrals Pain Management Referral M25.562 - Pain in left knee Coding Level of Care Code Est Pt Level 3 (75077) Diagnoses Left knee pain M25.562
[2023-12-22 14:02] VITALS: BMI 19.0
== END 2023-12-22 14:32 | disposition home or self-care (01) ==
PROVIDERS: PCP Internal Medicine Endocrinology, Diabetes & Metabolism; Visit Provider Orthopaedic Surgery
DX: M25.562 Pain in left knee (principal)
CPT/HCPCS: 99213

== ENCOUNTER 2023-12-30 08:40 | Outpatient (AMB) | payer MEDICARE, SELFPAY ==
--- NOTE | 2023-12-30 08:43 | MHC.OFFVIS ---
Vital Signs 12/30/23 08:51 Height 5 ft 5 in Weight 116 lb BMI 19.3 BP 125/66 Blood Pressure Location Rt brachial Position Sitting Pulse 90 Pulse Source Pulse Oximeter Pulse Oximetry (%) 98 Oxygen Delivery Method Room Air Intake Visit Reasons: Knee Pain Intake Note: Pain today 10/26 Child Watch Attendant Required: No Accompanied by: Self / Same As Patient Allergies meperidine [From Demerol] Allergy (Severe, Verified 12/30/23 08:45) hard to breathe trazodone Allergy (Severe, Verified 12/30/23 08:45) Swelling, H/A, SOB, diarrhea amitriptyline Allergy (Intermediate, Verified 12/30/23 08:45) dizzy, sick to stomach, metal taste duloxetine [From Cymbalta] Adverse Reaction (Intermediate, Verified 12/30/23 08:45) Vomiting HPI HPI Knee Pain: Details: Patient is a pleasant 73-year-old female with prior history of 1st left total knee replacement surgery by Dr. Pierce in 2007 followed by left total knee replacement revision surgery by Dr. Alvares in [place] in 2010. Patient states following the 2nd surgery her left knee pain continues with daily walking, movements, bending, squatting, climbing or descending stairs and cold weather changes. She also had recent right knee arthroscopic partial medial and lateral meniscectomies last month. Patient has undergone multiple conservative treatments including physical therapy, cortisone, gel, and PRP injections at [facility] with minimal benefit. She continues home exercises but with pain. Patient was referred to us by Dr. Ghosh for potential nerve blocks to alleviate her persistent daily left knee pain. Left knee is localized to medial aspect with tenderness on palpation and mild discomfort in the posterior aspect. She recently injured her left knee by getting out of her SUV and heard a pop in her left knee. She was seen by Orthopedics and xray showed total knee arthroplasty in good position with no signs of loosening, no acute bony abnormalities per Dr. Ghosh. Patient is interested to undergo diagnostic genicular nerve block for potential RFA procedure. Patient denies any fever, chills, dizziness, shortness of breath, weakness, numbness or tingling, bladder or bowel dysfunction or saddle anesthesia. Location: Left knee pain Duration: Chronic pain for 16 years Characteristics of symptom or complaint: Throbbing, stabbing, sharp, aching, heavy, stinging, crushing, cutting Aggravating or associated factors: Movements, walking, bending, climbing stairs, cold weather Relieving factors: Cold therapy, Tylenol, gabapentin, lidocaine patch, Biofreeze, Voltaren gel Treatment: PT, injections-cortisone, gel, PRP, knee brace, home exercise program [facility] Medical History Head injury (~08/2023) Headache Numbness and tingling History of fall (08/18/23) Seasonal allergies Arthritis PONV (postoperative nausea and vomiting) Anxiety Surgical History (Updated 12/30/23 @ 12:45 by JULIANNE Bowman) History of cervical discectomy Hx of basal cell carcinoma excision History of total left knee replacement (TKR) (~2010) History of appendectomy Hx of hand surgery Hx of shoulder surgery (06/19/22) Social History Household Members: Spouse Housing: House Are you a primary critical care technician to a significant other at home: Yes (older brother in [place]) Do you presently have visiting nurse or other home services: No Patient Tobacco Use Status: Former Tobacco user Tobacco use type: Cigarette Current occupational status: retired Current occupation: Right hand dominant Review of Systems Const All systems reviewed & are unremarkable except as noted in HPI and below Physical Exam Vital Signs: Last Vital Signs Pulse 90 12/30/23 08:51 BP 125/66 12/30/23 08:51 Pulse Ox 98 12/30/23 08:51 Oxygen Delivery Method Room Air 12/30/23 08:51 BMI result Body Mass Index 19.3 General: Appears afebrile. Alert and oriented. Mood and affect appropriate. Follows and participates in conversation appropriately. Respiratory effort is unlabored. No cough. Able to transition from sit to stand unassisted. Ambulates with bilaterally normal heel strike and toe off. Extrem General: Yes capillary refill normal, Yes no clubbing, cyanosis or edema and Yes no calf tenderness Left lower extremity: knee (Limited ROM to 110-115. Well healed scar.) Details: normal to inspection and tenderness Location: of the medial joint line; no swelling, no ecchymosis, no crepitus and no unusual warmth Results Reviewed Results Reviewed: Per Orthopedic notes 12/22/23: X-rays of the patient's left knee show a total knee arthroplasty in good position with no signs of loosening, no acute bony abnormalities Assessment & Plan Assessment & Plan (1) History of total left knee replacement (TKR): Onset Date: ~2010 Comment: 2007, revision 2011 Code(s): Z96.652 - Presence of left artificial knee joint Category: Surgical (2) Left knee pain: Code(s): M25.562 - Pain in left knee Category: Medical Plan Scheduled diagnostic left genicular nerve blocks with local and fluoroscopy for potential cool genicular RFA procedure. We also discussed Sprint PNS trial, patient declined. Informational pamphlets provided to patient today. Expectations, risks and benefits were reviewed. Patient is aware she will be contacted to schedule this procedure. Patient is not on anticoagulation. All questions were answered and the patient is in agreement of plan. Follow-up after injections and sooner as needed. Coding Level of Care Code New Pt Level 4 (29698) Diagnoses History of total left knee replacement (TKR) Z96.652 Left knee pain M25.562
[2023-12-30 08:51] VITALS: BP 125/66; PULSE 90; O2SAT 98; BMI 19.3
== END 2023-12-30 09:32 | disposition home or self-care (01) ==
PROVIDERS: PCP Internal Medicine Endocrinology, Diabetes & Metabolism; Visit Provider Nurse Practitioner Family
DX: M25.562 Pain in left knee (principal); Z96.652 Presence of left artificial knee joint
CPT/HCPCS: 99204

== ENCOUNTER → 2023-12-30 08:40 | Outpatient (BNVA) | payer MEDICARE, SELFPAY | PROVIDERS: PCP Internal Medicine Endocrinology, Diabetes & Metabolism; Visit Provider Nurse Practitioner Family | DX: M25.562 Pain in left knee (principal); Z96.652 Presence of left artificial knee joint | CPT/HCPCS: 99202 ==

== ENCOUNTER 2024-01-08 07:50 | Outpatient (REF) | payer MEDICARE, SELFPAY | END 2024-01-08 07:51 | disposition home or self-care (01) | LOC: CF 07:50 | PROVIDERS: Visit Provider Internal Medicine | DX: M25.562 Pain in left knee (principal); Z96.652 Presence of left artificial knee joint | CPT/HCPCS: 64454; J2795 ==

== ENCOUNTER 2024-01-08 10:22 | Outpatient (AMB) | payer MEDICARE, SELFPAY ==
--- NOTE | 2024-01-08 10:27 | MHC.OFFVIS ---
Vital Signs 01/08/24 11:21 01/08/24 11:22 Height 5 ft 5 in 5 ft 5 in Weight 116 lb 116 lb BMI 19.3 19.3 BP 118/62 120/74 Blood Pressure Location Lt brachial Lt brachial Position Sitting Sitting Respiration 14 14 Pulse 75 76 Pulse Source Pulse Oximeter Pulse Oximeter Pulse Oximetry (%) 95 98 Oxygen Delivery Method Room Air Room Air Comment pre-op post-op Intake Visit Reasons: Left Dx GNB Allergies meperidine [From Demerol] Allergy (Severe, Verified 01/08/24 11:24) hard to breathe trazodone Allergy (Severe, Verified 01/08/24 11:24) Swelling, H/A, SOB, diarrhea amitriptyline Allergy (Intermediate, Verified 01/08/24 11:24) dizzy, sick to stomach, metal taste duloxetine [From Cymbalta] Adverse Reaction (Intermediate, Verified 01/08/24 11:24) Vomiting HPI HPI Left Dx GNB: Details: Patient presents for scheduled procedure. Denies any recent cough, cold, infection, fever or other significant changes in medical history since last office visit. [facility] Medical History Head injury (~08/2023) Headache Numbness and tingling History of fall (08/18/23) Seasonal allergies Arthritis PONV (postoperative nausea and vomiting) Anxiety Surgical History (Updated 12/30/23 @ 12:45 by JULIANNE Bowman) History of cervical discectomy Hx of basal cell carcinoma excision History of total left knee replacement (TKR) (~2010) History of appendectomy Hx of hand surgery Hx of shoulder surgery (06/19/22) Social History Household Members: Spouse Housing: House Are you a primary acute care registered nurse to a significant other at home: Yes (older brother in [place]) Do you presently have visiting nurse or other home services: No Patient Tobacco Use Status: Former Tobacco user Tobacco use type: Cigarette Current occupational status: retired Current occupation: Right hand dominant Physical Exam Vital Signs: Last Vital Signs Pulse 76 01/08/24 11:22 Resp 14 01/08/24 11:22 BP 120/74 01/08/24 11:22 Pulse Ox 98 01/08/24 11:22 Oxygen Delivery Method Room Air 01/08/24 11:22 BMI result Body Mass Index 19.3 Office Procedures Nerve Block Details: Superior medial and inferior medial genicular nerves block, Left - Ultrasound Guided After obtaining written consent, pre-procedure blood pressure and heart rate were stable and recorded in the nursing record. The patient was placed supine on the table. The area overlying the peripheral nerves was widely prepped with chloraprep and allowed to dry. Using ultrasound, the appropriate landmarks were identified. A 25 gauge 1.5 inch hypodermic needle was advanced under ultrasound guidance to the appropriate landmark of each peripheral nerve. Aspiration was negative for heme and synovial fluid. 1 cc of ropivacaine 0.5% was injected around each targeted nerve. The needle was removed, skin cleansed and a sterile bandage was applied. The patient tolerated the procedure well and no complications were encountered. Following the procedure the patient's vital signs were stable. The patient was discharged home in good condition with post-procedural instructions. Time Out: Immediately prior to the procedure, the following was verbally confirmed that there is a signed consent form and that the correct patient, planned procedure, site and side are consistent with documentation and that necessary equipment and/or blood products are available prior to the start of the case. Complications: none EBL: <5 cc 31505-Ttamffnxcz Nerve Block Procedure code (CPT) selection complete Assessment & Plan Assessment & Plan (1) History of total left knee replacement (TKR): Onset Date: ~2010 Comment: 2007, revision 2010 Code(s): Z96.652 - Presence of left artificial knee joint Category: Surgical (2) Left knee pain: Code(s): M25.562 - Pain in left knee Category: Medical Plan Patient is status post diagnostic left superior medial and inferior medial genicular nerve blocks. Patient tolerated procedure well and was discharged home in stable condition with discharge instructions. All questions were answered. We will follow-up via telephone or in clinic to assess response to therapy. A follow-up appointment was made during today's visit. Coding Level of Care Code Procedure Only Diagnoses History of total left knee replacement (TKR) Z96.652 Left knee pain M25.562 CPT Codes Nerve Block - Nerve Block: 14082-[id number] Nerve Block ([id number])
[2024-01-08 11:21] VITALS: BP 118/62; PULSE 75; RESP 14; O2SAT 95; BMI 19.3
[2024-01-08 11:22] VITALS: BP 120/74; PULSE 76; RESP 14; O2SAT 98; BMI 19.3
--- OUTSIDE RECORDS SUMMARY | 2024-01-10 23:40 | XMS_ITS | Continuity of Care Document ---
Author Organization [facility] Address [address] [place] [address]- Care Team Providers Care Aircraft Refueller Name Role Phone Flores GUZMÁN, Jason Villarreal Primary Care Physician Encounter [facility] R [id number] Date(s): 10/01/23 - 01/04/24 [facility] [address] [place] [id number]- Attending Physician: Tiffany GUZMÁN, Jsoe De Jesus Admitting Physician: Tiffany GUZMÁN, Jose De Jesus Allergies, Adverse Reactions, Alerts Substance Reaction Severity Status amitriptyline dizzy metal taste shakey N&V Active trazodone SWELLING DIFFICULTY BREATHING RAPID PULSE DIARRHEA Active Adhesive Bandage 1 PULLS MY SKIN OFF TRANSPORE TAPE Active Demerol HCl O2 LEVEL LOW DIFFICULTY BREATHING Active Cymbalta VOMITING Active 1TRANSPORE TAPE Immunizations Given and Recorded Vaccine Date Status Refusal Reason Hepatitis A-Hepatitis B Vaccine 1 05/13/19 Recorde d 1Result Comment: [place] [facility] [facility] Chasidy 1 tablet, By Mouth, Daily, [...] Personnel Name: Jason Tanner MD Position: S Outreach Member Role: PCP Address: Address: [address] [place] [address] [facility] [place], [place] [address] Name: Sun Mayen RN Position: S RN Member Role: Primary Care Nurse Name: Elizabeth Silva RN Position: S RN Supv Member Role: Primary Care Nurse Name: Dia Matos RN Position: S RN Member Role: Primary Care Nurse Name: Migue Jeronimo RN Position: S RN Member Role: Primary Care Nurse Care Team Related Persons Name: EMILY OLMOS Address: home [address] [place] [address] Name: STACEY BEJARANO Address: home [address] [place] [address]
== END 2024-01-08 11:18 | disposition home or self-care (01) ==
LOC: HO.PMCPRC 10:22
PROVIDERS: PCP Internal Medicine Endocrinology, Diabetes & Metabolism; Visit Provider Internal Medicine
DX: M25.562 Pain in left knee (principal); Z96.652 Presence of left artificial knee joint
CPT/HCPCS: 64454

== ENCOUNTER 2024-01-15 11:16 | Outpatient (AMB) | payer MEDICARE, SELFPAY ==
--- NOTE | 2024-01-15 11:17 | A.OFFVIS_ITS ---
Vital Signs 01/15/24 11:21 Height 5 ft 5 in Weight 116 lb BMI 19.3 BP 130/59 L Blood Pressure Location Lt brachial Position Sitting Pulse 69 Pulse Source Pulse Oximeter Pulse Oximetry (%) 98 Oxygen Delivery Method Room Air Intake Visit Reasons: s/p Left Dx GNB Intake Note: Pain today 09/25 Agricultural Extension Officer Required: No Accompanied by: Self / Same As Patient Allergies meperidine [From Demerol] Allergy (Severe, Verified 01/15/24 11:22) hard to breathe trazodone Allergy (Severe, Verified 01/15/24 11:22) Swelling, H/A, SOB, diarrhea amitriptyline Allergy (Intermediate, Verified 01/15/24 11:22) dizzy, sick to stomach, metal taste duloxetine [From Cymbalta] Adverse Reaction (Intermediate, Verified 01/15/24 11:22) Vomiting HPI Comments Details: Patient presents today to assess response to Left diagnostic genicular nerve block on 01/08/[address] Hooks. Patient reports 90% pain relief for 18 hours following the procedure with significant improvement in daily activities and functioning, mobility and sleep. She is interested to proceed with left genicular RFA procedure for a long sustained pain relief. We also discussed peripheral nerve stimulation with Sprint device, patient declined. Patient reports pain returned to baseline after 18 hours and she has been taking Tylenol 1000 mg in the morning and bedtime every day around the clock and applying ice packs with continued symptoms. Denies any recent cough, cold, infection, fever, any significant changes in her medical history, medications or recent hospitalizations. Past Procedures: 01/08/24: Left diagnostic GNB-90% pain relief for 18 hours PRIOR: Patient is a pleasant 73-year-old female with prior history of 1st left total knee replacement surgery by Dr. Pierce in 2007 followed by left total knee replacement revision surgery by Dr. Alvares in [place] in 2010. Patient states following the 2nd surgery her left knee pain continues with daily walking, movements, bending, squatting, climbing or descending stairs and cold weather changes. She also had recent right knee arthroscopic partial medial and lateral meniscectomies last month. Patient has undergone multiple conservative treatments including physical therapy, cortisone, gel, and PRP injections at [facility] with minimal benefit. She continues home exercises but with pain. Patient was referred to us by Dr. Ghosh for potential nerve blocks to alleviate her persistent daily left knee pain. Left knee is localized to medial aspect with tenderness on palpation and mild discomfort in the posterior aspect. She recently injured her left knee by getting out of her SUV and heard a pop in her left knee. She was seen by Orthopedics and xray showed total knee arthroplasty in good position with no signs of loosening, no acute bony abnormalities per Dr. Ghosh. Patient is interested to undergo diagnostic genicular nerve block for potential RFA procedure. Patient denies any fever, chills, dizziness, shortness of breath, weakness, numbness or tingling, bladder or bowel dysfunction or saddle anesthesia. Location: Left knee pain Duration: Chronic pain for 16 years Characteristics of symptom or complaint: Throbbing, stabbing, sharp, aching, heavy, stinging, crushing, cutting Aggravating or associated factors: Movements, walking, bending, climbing stairs, cold weather Relieving factors: Cold therapy, Tylenol, gabapentin, lidocaine patch, Biofreeze, Voltaren gel Treatment: PT, injections-cortisone, gel, PRP, knee brace, home exercise program [facility] Medical History Head injury (~08/2023) Headache Numbness and tingling History of fall (08/18/23) Seasonal allergies Arthritis PONV (postoperative nausea and vomiting) Anxiety Surgical History History of cervical discectomy Hx of basal cell carcinoma excision History of total left knee replacement (TKR) (~2010) History of appendectomy Hx of hand surgery Hx of shoulder surgery (06/19/22) Social History Household Members: Spouse Housing: House Are you a primary women's health care nurse practitioner to a significant other at home: Yes (older brother in [place]) Do you presently have visiting nurse or other home services: No Patient Tobacco Use Status: Former Tobacco user Tobacco use type: Cigarette Current occupational status: retired Current occupation: Right hand dominant Review of Systems Const All systems reviewed & are unremarkable except as noted in HPI and below Physical Exam Vital Signs: Last Vital Signs Pulse 69 01/15/24 11:21 BP 130/59 L 01/15/24 11:21 Pulse Ox 98 01/15/24 11:21 Oxygen Delivery Method Room Air 01/15/24 11:21 BMI result Body Mass Index 19.3 General: Appears afebrile. Alert and oriented. Mood and affect appropriate. Follows and participates in conversation appropriately. Respiratory effort is unlabored. No cough. Able to transition from sit to stand unassisted. Ambulates with bilaterally normal heel strike and toe off. Extrem General: Yes capillary refill normal, Yes no clubbing, cyanosis or edema and Yes no calf tenderness Left lower extremity: knee (Limited ROM. Well healed scar.) Details: normal to inspection and tenderness Location: of the medial joint line; no swelling, no ecchymosis, no crepitus and no unusual warmth Results Reviewed Results Reviewed: XR KNEE, LEFT 12/22/23 FINDINGS: There is bony demineralization. Prosthetic components of the total knee arthroplasty are appropriately aligned without periprosthetic fracture or abnormal lucency. No component migration. No joint effusion. IMPRESSION: Appropriate alignment of the left total knee arthroplasty without evidence of complications. Assessment & Plan Assessment & Plan (1) History of total left knee replacement (TKR): Onset Date: ~2010 Comment: 2007, revision 2010 Code(s): Z96.652 - Presence of left artificial knee joint Category: Surgical (2) Left knee pain: Code(s): M25.562 - Pain in left knee Category: Medical Plan Patient is one week status post diagnostic left superior medial and inferior medial genicular nerve blocks with good results and improved daily functioning, mobility and sleep following the injections. Schedule Left Genicular RFA with local and fluoroscopy for chronic left knee pain s/p left TKA. Expectations, risks and benefits were reviewed. Patient is aware she will be contacted to schedule this procedure. All questions were answered and the patient is in agreement of plan. Follow-up after RFA procedure and sooner as needed. Coding Level of Care Code Est Pt Level 3 (33116) Diagnoses History of total left knee replacement (TKR) Z96.652 Left knee pain M25.562
[2024-01-15 11:21] VITALS: BP 130/59; PULSE 69; O2SAT 98; BMI 19.3
== END 2024-01-15 11:44 | disposition home or self-care (01) ==
PROVIDERS: PCP Internal Medicine Endocrinology, Diabetes & Metabolism; Visit Provider Nurse Practitioner Family
DX: Z96.652 Presence of left artificial knee joint (principal); M25.562 Pain in left knee
CPT/HCPCS: 99213

== ENCOUNTER → 2024-01-15 11:16 | Outpatient (BNVA) | payer MEDICARE, SELFPAY | PROVIDERS: PCP Internal Medicine Endocrinology, Diabetes & Metabolism; Visit Provider Nurse Practitioner Family | DX: M25.561 Pain in right knee (principal); M25.562 Pain in left knee; Z96.652 Presence of left artificial knee joint | CPT/HCPCS: 99212 ==

== ENCOUNTER 2024-01-15 11:45 | Outpatient (AMB) | payer MEDICARE, SELFPAY ==
--- NOTE | 2024-01-15 12:30 | A.OFFVIS_ITS ---
Intake Visit Reasons: PO RT knee 12/05/23 DR Intake Note: Kyleigh is a 73 year old female who presents today post operatively S/P Right knee 12/05/23. She reports mild intermittent discomfort in her right knee. She denies any fevers or chills. She does take Tylenol as needed for discomfort. Allergies meperidine [From Demerol] Allergy (Severe, Verified 01/15/24 11:22) hard to breathe trazodone Allergy (Severe, Verified 01/15/24 11:22) Swelling, H/A, SOB, diarrhea amitriptyline Allergy (Intermediate, Verified 01/15/24 11:22) dizzy, sick to stomach, metal taste duloxetine [From Cymbalta] Adverse Reaction (Intermediate, Verified 01/15/24 11:22) Vomiting Medication List - Last Reconciled 01/15/24 by Popeye Ghosh MD acetaminophen 1,500 mg PO BID PRN betamethasone, augmented 0.05 % appl topical BID cholecalciferol (vitamin D3) 50 mcg PO DAILY clonazepam 3 mg PO BEDTIME PRN cyclosporine 0.05% (Restasis) 1 drp ophthalmic (eye) Q12H fexofenadine (Chasidy Allergy) 180 mg PO DAILY fluorouracil 5% 1 appl topical BID folic acid 1 mg PO DAILY gabapentin 1,600 mg PO BID [id number] glycn-C 500-400 mg 1 cap PO BID methotrexate sodium 7.5 mg PO .Q FRIDAY multivitamin 1 tab PO DAILY PFSH Medical History Head injury (~08/2023) Headache Numbness and tingling History of fall (08/18/23) Seasonal allergies Arthritis PONV (postoperative nausea and vomiting) Anxiety Surgical History History of cervical discectomy Hx of basal cell carcinoma excision History of total left knee replacement (TKR) (~2010) History of appendectomy Hx of hand surgery Hx of shoulder surgery (06/19/22) Social History Household Members: Spouse Housing: House Are you a primary career professional to a significant other at home: Yes (older brother in [place]) Do you presently have visiting nurse or other home services: No Patient Tobacco Use Status: Former Tobacco user Tobacco use type: Cigarette Current occupational status: retired Current occupation: Right hand dominant Physical Exam Extrem Other: Physical examination of the patient's right knee shows that the surgical incisions are well healed, no erythema, minimal crepitus with range of motion, minimal discomfort with range of motion Assessment & Plan Assessment & Plan (1) Knee pain, right: Code(s): M25.561 - Pain in right knee Category: Medical Plan Ms. Evangelista continues to do well after undergoing right knee arthroscopic surgery on 12/05/2023. She will continue to progress to activities as tolerated. I discussed with the patient the fact that her symptoms should continue to improve over the next few months. She will contact me prior to her follow-up appointment in 2 months should any questions or concerns arise. Feel free to call me at any time should questions regarding her orthopedic management arise. Coding Level of Care Code Global (20462) Diagnoses Knee pain, right M25.561
== END 2024-01-15 12:41 | disposition home or self-care (01) ==
PROVIDERS: PCP Internal Medicine Endocrinology, Diabetes & Metabolism; Visit Provider Orthopaedic Surgery
DX: M25.561 Pain in right knee (principal)
CPT/HCPCS: 99024

== ENCOUNTER 2024-02-05 11:04 | Outpatient (AMB) | payer MEDICARE, SELFPAY ==
[2024-02-05 11:16] VITALS: BMI 19.3
--- NOTE | 2024-02-05 11:16 | A.OFFVIS_ITS ---
Vital Signs 02/05/24 11:16 Height 5 ft 5 in Weight 116 lb BMI 19.3 Intake Visit Reasons: left knee pain Intake Note: Kyleigh is a 73 year old female who presents with mild intermittent discomfort and swelling in her right knee after undergoing right knee arthroscopic surgery on 12/05/2023. The patient states that she has been applying ice to her right knee which has helped significantly with the swelling. She denies any locking or giving way. Allergies meperidine [From Demerol] Allergy (Severe, Verified 02/05/24 11:19) hard to breathe trazodone Allergy (Severe, Verified 02/05/24 11:19) Swelling, H/A, SOB, diarrhea amitriptyline Allergy (Intermediate, Verified 02/05/24 11:19) dizzy, sick to stomach, metal taste duloxetine [From Cymbalta] Adverse Reaction (Intermediate, Verified 02/05/24 11:19) Vomiting Medication List - Last Reconciled 02/05/24 by Popeye Ghosh MD acetaminophen 1,500 mg PO BID PRN betamethasone, augmented 0.05 % appl topical BID cholecalciferol (vitamin D3) 50 mcg PO DAILY clonazepam 3 mg PO BEDTIME PRN cyclosporine 0.05% (Restasis) 1 drp ophthalmic (eye) Q12H fexofenadine (Chasidy Allergy) 180 mg PO DAILY fluorouracil 5% 1 appl topical BID folic acid 1 mg PO DAILY gabapentin 1,600 mg PO BID [id number]-pw glycn-C 500-400 mg 1 cap PO BID methotrexate sodium 7.5 mg PO .Q FRIDAY multivitamin 1 tab PO DAILY PFSH Medical History Head injury (~08/2023) Headache Numbness and tingling History of fall (08/18/23) Seasonal allergies Arthritis PONV (postoperative nausea and vomiting) Anxiety Surgical History History of cervical discectomy Hx of basal cell carcinoma excision History of total left knee replacement (TKR) (~2010) History of appendectomy Hx of hand surgery Hx of shoulder surgery (06/19/22) Social History (Reviewed 01/15/24 @ 11:31 by ESPERANZA Bowman Household Members: Spouse Housing: House Are you a primary director of healthcare systems to a significant other at home: Yes (older brother in Detention) Do you presently have visiting nurse or other home services: No Patient Tobacco Use Status: Former Tobacco user Tobacco use type: Cigarette Current occupational status: retired Current occupation: Right hand dominant Physical Exam Vital Signs: BMI result Body Mass Index 19.3 Extrem Other: Right knee examination shows that the surgical incisions are well healed, no erythema, a mild effusion, mild crepitus with range of motion, minimal discomfort with range of motion, no instability Assessment & Plan Assessment & Plan (1) Knee pain, right: Code(s): M25.561 - Pain in right knee Category: Medical Plan Ms. Evangelista continues to do fairly well after undergoing right knee arthroscopic surgery on 12/05/2023. She will continue to progress to activities as tolerated. I discussed with the patient the fact that her discomfort should continue to improve over the next few months. She will contact me prior to her follow-up appointment next month should her symptoms worsen in any way. Feel free to call me at any time should questions regarding her management arise. Coding Level of Care Code Global (39580) Diagnoses Knee pain, right M25.561
== END 2024-02-05 11:39 | disposition home or self-care (01) ==
PROVIDERS: PCP Internal Medicine Endocrinology, Diabetes & Metabolism; Visit Provider Orthopaedic Surgery
DX: M25.561 Pain in right knee (principal)
CPT/HCPCS: 99024

== ENCOUNTER → 2024-02-05 11:04 | Outpatient (BNVA) | payer MEDICARE, SELFPAY | PROVIDERS: PCP Internal Medicine Endocrinology, Diabetes & Metabolism; Visit Provider Orthopaedic Surgery | DX: M25.561 Pain in right knee (principal) | CPT/HCPCS: 99212 ==

== ENCOUNTER → 2024-02-24 10:36 | Outpatient (BNVA) | payer MEDICARE, SELFPAY | PROVIDERS: PCP Internal Medicine Endocrinology, Diabetes & Metabolism; Visit Provider Orthopaedic Surgery ==